=== PATIENT | female | born 1960 | race Caucasian/White ===

== ENCOUNTER 2018-07-16 14:45 | Emergency (ER) | payer BC, SELFPAY ==
--- NOTE | 2018-07-16 14:14 | PC.NURSE ---
unable to obtain IV. 2 attempts in Left hand, unsuccessful. Provider aware. Lab called for lab draw.
[2018-07-16 14:47] VITALS: BP 179/83; PULSE 62; RESP 14; TEMP 36.8; O2SAT 98
--- NOTE | 2018-07-16 15:07 | DI.RAD.S_ITS ---
PROCEDURE: XR ACUTE ABDOMEN SERIES INDICATIONS: lower abd pain, constipation. TECHNIQUE: One view chest and two views of the abdomen were acquired. COMPARISON: None. FINDINGS: Surgical changes and devices: Cervical spine postoperative changes are seen. Chest: Lungs are clear. Heart size is normal. No pleural effusions. No pneumoperitoneum. Abdomen: Mild prominence of right lower quadrant bowel loops can be seen, which measure up to 3 cm. A moderate amount of stool can be seen within the colon. No suspicious calcifications. Visualized solid organ contours appear normal. Bones: No suspicious bony lesions. Age-appropriate bony degenerative changes are seen. IMPRESSION: Mild prominence of gas filled loops of bowel within the right lower quadrant. This is felt most likely to be related to ileus, although differential diagnosis includes small bowel obstruction. There is a moderate amount of stool seen within the colon, which is consistent with the given history of constipation. If it would be helpful for clinical management decision making, please consider a dedicated CT of the abdomen pelvis with IV and oral contrast. Dictated by: Melecio Ta M.D. on 07/16/2018 at 16:13 Approved by: Melecio Ta M.D. on 07/16/2018 at 16:15
[2018-07-16 15:55] LABS: Add Manual Diff / Slide Review NO; Basophils Percent Auto 0.5 % (0-2); Hematocrit 39.7 % (36-46); Hemoglobin 13.5 g/dL (12.0-16.0); Lymphocytes Percent Auto 31.5 % (25-40); Mean Corpuscular HGB Conc 33.9 % (30-36); Mean Corpuscular Volume 91.5 fL (80-100); Monocytes Percent Auto 7.3 % (3-14); Neutrophils Absolute Auto 6600 /uL (3000-5900); Neutrophils Percent Auto 58.7 % (50-75); Platelet Count 291 X10^3/uL (150-400); Red Blood Cell Count 4.35 X10^6/uL (4.0-5.2); Red Cell Distribution Width 13.1 % (11.6-14.8); White Blood Cell Count 11.2 X10^3/uL (4.5-11.0)
[2018-07-16 16:01] LABS: INR 1.1 (0.9-1.3)
[2018-07-16 16:03] LABS: PTT Partial Thromboplastin Tim 32 SECONDS (26.4-36.2)
[2018-07-16 16:07] LABS: Alanine Aminotransferase 27 IU/L (9-52); Albumin 4.6 g/dL (3.5-5.0); Albumin Globulin Ratio 1.4 (1.0-2.8); Alkaline Phosphatase 63 U/L (38-126); Aspartate Aminotransferase 35 IU/L (14-36); BUN Creatinine Ratio 21.4 (6-22); Bilirubin Total 0.6 mg/dL (0.2-1.3); Blood Urea Nitrogen 15 mg/dL (7-17); Calcium 9.8 mg/dL (8.4-10.2); Carbon Dioxide 27 mmol/L (22-32); Chloride 105 mmol/L (98-107); Estimated Glomerular Filt Rate > 60.0 mL/min (>60); Globulin 3.4 g/dL (1.7-4.1); Glucose 98 mg/dL (70-100); HEMOLYSIS < 15 (0-50); Lipase 118 U/L (23-300); Potassium 4.4 mmol/L (3.4-5.1); Sodium 146 mmol/L (137-145)
[2018-07-16 16:26] LABS: Bacteria Urine Moderate (10-30); Culture Indicated Urine Specimen Cultured; RBC Urine 0-1/HPF (0-5/HPF); Squamous Epithelial Cell Urine 1-5 /HPF; WBC Urine 5-10/HPF (0-5/HPF)
--- NOTE | 2018-07-16 16:32 | ED_ITS ---
HPI - Abdominal Pain General Chief Complaint: Abdominal Pain Stated Complaint: Lower Abd pain Time Seen by Provider: 07/16/18 16:18 Source: patient History of Present Illness HPI narrative: This is a 58-year-old female that comes in with complaint of abdominal pain. Patient states that she has had several days of increasing abdominal pain. She has not had a bowel movement about 3 days. She has been passing gas regularly. She has not been having any vomiting. She has had fevers up to 101.2 at home. She states that some it does hurt when she urinates but hurts in her upper abdomen not with urination. She is not having frequency. She has had a prior history with removal of her ovaries but has the rest of her organs. She followed up with her physician today who recommended she come here for evaluation. She did try oral stool softeners as well as glycerin suppository without any improvement. MD complaint: abdominal pain Related Data Home Medications Medication Instructions Recorded Confirmed aspirin 81 mg PO DAILY 07/16/18 07/16/18 gemfibrozil 600 mg PO BID 07/16/18 07/16/18 levothyroxine 1 tab PO DAILY 07/16/18 07/16/18 lisinopril 20 mg PO DAILY 07/16/18 07/16/18 metformin 500 mg PO DAILY 07/16/18 07/16/18 pravastatin 40 mg PO DAILY 07/16/18 07/16/18 venlafaxine 1 tab PO DAILY 07/16/18 07/16/18 Previous Rx's Medication Instructions Recorded ciprofloxacin HCl 500 mg PO BID 10 Days #20 tab 07/16/18 hydrocodone-acetaminophen [[place]] 1 tab PO Q6H PRN #10 tab 07/16/18 metronidazole [Flagyl] 500 mg PO TID 10 Days #30 tab 07/16/18 Allergies Allergy/AdvReac Type Severity Reaction Status Date / Time codeine AdvReac Intermediate Nausea Verified 07/16/18 14:49 Review of Systems Review of Systems All systems reviewed & are unremarkable except as noted in HPI and below Constitutional Reports fever(s) Cardiovascular Denies chest pain, Denies irregular heart rhythm, Denies lightheadedness, Denies palpitations, Denies dyspnea, Denies dyspnea on exertion and Denies orthopnea Respiratory Denies cough, Denies dyspnea, Denies dyspnea on exertion and Denies wheezing Gastrointestinal Gastrointestinal: Reports abdominal pain, Denies change in bowel habits, Denies diarrhea, Denies nausea and Denies vomiting Genitourinary Denies flank pain and Denies urinary urgency Endocrine Denies palpitations Allergic/Immunologic Denies wheezing [facility] Medical History Hypertension (Acute) Social History Smoking Status: Never smoker Exam Initial Vital Signs Initial Vital Signs: Vital Signs Temperature 98.2 F 07/16/18 14:47 Pulse Rate 62 07/16/18 14:47 Respiratory Rate 14 07/16/18 14:47 Blood Pressure 179/83 H 07/16/18 14:47 Pulse Oximetry 98 07/16/18 14:47 Resp Effort & Inspection: normal respiratory effort, able to speak in complete sentences, no respiratory distress and no use of accessory muscles Auscultation: clear to auscultation bilaterally, no rales, no rhonchi and no wheezes Cardio Rate: regular rate Rhythm: regular rhythm Heart Sounds: no click, no gallops, no murmurs and no rubs Pulses: normal peripheral pulses GI Inspection: non-distended Palpation: soft, no hepatosplenomegaly, No guarding, No hernia, No mass, No pulsatile mass and tender (Patient is quite tender in the right and left lower quadrant. Less so suprapubically.) Auscultation: normal bowel sounds General: No CVA tenderness Course Orders Ordered: Discontinued Medications Ciprofloxacin (Cipro) 500 mg PO NOW ONE Stop: 07/16/18 18:58 Last Admin: 07/16/18 19:47 Dose: 500 mg Sodium Chloride (Normal Saline 0.9%) 1,000 mls @ 1,000 mls/hr IV BOLUS ONE Stop: 07/16/18 18:06 Last Infusion: 07/16/18 19:46 Dose: 0 mls/hr Admin: 07/16/18 18:24 Dose: 1,000 mls/hr Metronidazole (Metronidazole) 500 mg PO NOW ONE Stop: 07/16/18 18:58 Last Admin: 07/16/18 19:47 Dose: 500 mg Morphine Sulfate (Morphine) 4 mg IV NOW ONE Stop: 07/16/18 18:57 Last Admin: 07/16/18 19:49 Dose: 4 mg Reevaluation(s) Reevaluation #1: Return did discuss with patient her imaging as well as plan. Patient is pain had returned. She had not had any pain when I initially evaluated her so we plan to repeat dose of pain medication, discussed plan for oral antibiotics as well as oral pain medications and need for follow-up. Patient felt comfortable with this plan. We will wait for her to finish her IV fluids. Time: 16:45 Vital Signs - 8 hr 07/16/18 14:47 Temperature 98.2 F Pulse Rate 62 Respiratory Rate 14 Blood Pressure 179/83 H Pulse Oximetry 98 MDM - Abdominal Pain Lab Data Attestation: I reviewed the patient's lab results. Result diagrams: 07/16/18 15:44 07/16/18 15:44 Lab Results 07/16/18 07/16/18 07/16/18 Range/Units 15:44 15:44 15:44 WBC 11.2 H (4.5-11.0) X10^3/uL RBC 4.35 (4.0-5.2) X10^6/uL Hgb 13.5 (12.0-16.0) g/dL Hct 39.7 (36-46) % MCV 91.5 (80-100) fL MCH 31.0 (26-34) PG MCHC 33.9 (30-36) % RDW 13.1 (11.6-14.8) % Plt Count 291 (150-400) X10^3/uL Neut % (Auto) 58.7 (50-75) % Lymph % (Auto) 31.5 (25-40) % [place] % (Auto) 7.3 (3-14) % Eos % (Auto) 2.0 (2-4) % Baso % (Auto) 0.5 (0-2) % Neut # (Auto) 6600 H (6096-4952) /uL PT 12.0 (10.1-12.7) SECONDS INR 1.1 (0.9-1.3) APTT 32 (26.4-36.2) SECONDS Sodium 146 H (137-145) mmol/L Potassium 4.4 (3.4-5.1) mmol/L Chloride 105 (98-107) mmol/L Carbon Dioxide 27 (22-32) mmol/L BUN 15 (7-17) mg/dL Creatinine 0.70 (0.52-1.04) mg/dL Estimated GFR > 60.0 (>60) mL/min BUN/Creatinine Ratio 21.4 (6-22) Glucose 98 (70-100) mg/dL Calcium 9.8 (8.4-10.2) mg/dL Total Bilirubin 0.6 (0.2-1.3) mg/dL AST 35 (14-36) IU/L ALT 27 (9-52) IU/L Alkaline Phosphatase 63 (38-126) U/L Total Protein 8.0 (6.3-8.2) g/dL Albumin 4.6 (3.5-5.0) g/dL Globulin 3.4 (1.7-4.1) g/dL Albumin/Globulin Ratio 1.4 (1.0-2.8) Lipase 118 (23-300) U/L Urine RBC (0-5/HPF) Urine WBC (0-5/HPF) Ur Squamous Epith Cells Urine Bacteria (None) Ur Culture Indicated? Micro UA Comment 07/16/18 Range/Units Unknown WBC (4.5-11.0) X10^3/uL RBC (4.0-5.2) X10^6/uL Hgb (12.0-16.0) g/dL Hct (36-46) % MCV (80-100) fL MCH (26-34) PG MCHC (30-36) % RDW (11.6-14.8) % Plt Count (150-400) X10^3/uL Neut % (Auto) (50-75) % Lymph % (Auto) (25-40) % [place] % (Auto) (3-14) % Eos % (Auto) (2-4) % Baso % (Auto) (0-2) % Neut # (Auto) (9613-8669) /uL PT (10.1-12.7) SECONDS INR (0.9-1.3) APTT (26.4-36.2) SECONDS Sodium (137-145) mmol/L Potassium (3.4-5.1) mmol/L Chloride (98-107) mmol/L Carbon Dioxide (22-32) mmol/L BUN (7-17) mg/dL Creatinine (0.52-1.04) mg/dL Estimated GFR (>60) mL/min BUN/Creatinine Ratio (6-22) Glucose (70-100) mg/dL Calcium (8.4-10.2) mg/dL Total Bilirubin (0.2-1.3) mg/dL AST (14-36) IU/L ALT (9-52) IU/L Alkaline Phosphatase (38-126) U/L Total Protein (6.3-8.2) g/dL Albumin (3.5-5.0) g/dL Globulin (1.7-4.1) g/dL Albumin/Globulin Ratio (1.0-2.8) Lipase (23-300) U/L Urine RBC 0-1/hpf (0-5/HPF) Urine WBC 5-10/hpf H (0-5/HPF) Ur Squamous Epith Cells 1-5 /hpf Urine Bacteria Moderate (10-30) H (None) Ur Culture Indicated? Specimen cultured Micro UA Comment Not Reportable Point of care testing: Urine Dip Bedside Urine Glucose Negative Bedside Urine Bilirubin - Negative Bedside Urine Ketone - Negative Urine Specific [place] 1.030 Bedside Urine Occult Blood - Negative Bedside Urine pH 6.0 Bedside Urine Protein +/- 15 Bedside Urine Urobilinogen - Negative Bedside Urine Nitrite - Negative Bedside Urine Leukocytes +/- 15 Esterase Imaging Data acute abd series: Radiologist's impression: [place] [address] XRay Report Signed Patient: Agnes Faustin MR#: [id number] : 1960 Acct:[id number] Age/Sex: 58 / F Date of Service: 07/16/18 Loc: ED Accession Number: [id number] Procedure: XR acute abdomen series Ordering Provider: Malika Oliver D.O. PROCEDURE: XR ACUTE ABDOMEN SERIES INDICATIONS: lower abd pain, constipation. TECHNIQUE: One view chest and two views of the abdomen were acquired. COMPARISON: None. FINDINGS: Surgical changes and devices: Cervical spine postoperative changes are seen. Chest: Lungs are clear. Heart size is normal. No pleural effusions. No pneumoperitoneum. Abdomen: Mild prominence of right lower quadrant bowel loops can be seen, which measure up to 3 cm. A moderate amount of stool can be seen within the colon. No suspicious calcifications. Visualized solid organ contours appear normal. Bones: No suspicious bony lesions. Age-appropriate bony degenerative changes are seen. IMPRESSION: Mild prominence of gas filled loops of bowel within the right lower quadrant. This is felt most likely to be related to ileus, although differential diagnosis includes small bowel obstruction. There is a moderate amount of stool seen within the colon, which is consistent with the given history of constipation. If it would be helpful for clinical management decision making, please consider a dedicated CT of the abdomen pelvis with IV and oral contrast. Dictated by: Melecio Ta M.D. on 07/16/2018 at 16:13 Approved by: Melecio Ta M.D. on 07/16/2018 at 16:15 CT scan - abdomen: Radiologist's impression: CT Scan Report Signed Patient: Agnes Faustin MR#: [id number] : 1960 Acct:[id number] Age/Sex: 58 / F Date of Service: 07/16/18 Loc: ED Accession Number: [id number] Procedure: CT abdomen pelvis w con Ordering Provider: Malika Oliver D.O. PROCEDURE: CT ABDOMEN PELVIS W CON INDICATIONS: RLQ and LLQ, no BM x 3 days, positive flatus TECHNIQUE: After the administration of intravenous contrast, 5 mm thick sections acquired from the diaphragm to the symphysis. 5 mm coronal and sagittal reformats were acquired. For radiation dose reduction, the following was used: automated exposure control, adjustment of mA and/or kV according to patient size. COMPARISON: None. FINDINGS: Image quality: Excellent. ABDOMEN: Lung bases: Mild dependent atelectasis in posterior aspect of bilateral lung bases are seen. Heart size is normal. Solid organs: Liver is normal in size and enhancement. Mild hepatic steatosis is seen. Gallbladder is within normal limits. Biliary system is non dilated. Pancreas enhances normally. Spleen is normal in size and enhancement. No adrenal nodules. Kidneys demonstrate normal size and enhancement, without hydronephrosis. Peritoneum and bowel: There is a moderate to large size hiatal hernia. No evidence of bowel obstruction. Mild fecal stasis in the colon is seen. No gross abnormal stomach or small bowel wall thickening is seen. There is diffuse sigmoid colon wall thickening with pericolonic fat stranding. A few sigmoid diverticuli are seen. No free fluid or free air. Nodes and vessels: No retroperitoneal or mesenteric adenopathy by size criteria. Aorta and inferior vena cava are normal in size. Miscellaneous: No ventral hernias. PELVIS: Genitourinary: Bladder wall thickness is normal. Miscellaneous: No inguinal hernias or adenopathy. Bones: No suspicious bony lesions. No vertebral body compression fractures. IMPRESSION: 1. Diffuse sigmoid colon wall thickening with narrowing of the lumen and pericolonic fat stranding suggestive of sigmoid colitis. 2. No evidence of bowel obstruction. No other area of abnormal bowel wall thickening. No free fluid or free air. A moderate to large size hiatal hernia. 3. No obstructing renal stone or hydronephrosis. Mild hepatic steatosis. Dictated by: Delfin Haji M.D. on 07/16/2018 at 18:15 Approved by: Delfin Haji M.D. on 07/16/2018 at 18:18 [facility] Narrative Medical decision making narrative: Patient has normal lab work, abdomen is tender on exam particularly right and left lower quadrant so CT imaging was ordered. Patient has a history of IV drug abuse so imaging was delayed while PICC line nurse was able to obtain IV access for imaging. Patient's urine shows leukocyte esterase but no other clear signs of infection. CT shows sigmoid colitis. Patient's plan for oral antibiotics. Medication for pain control and need for follow-up. Discharge Plan Departure Patient Disposition: Home Clinical Impression: Abdominal pain, Colitis Discharge Date/Time: 07/16/18 21:23 Interventions: ED Discharge Assessment Last Done: 07/16/18 21:22 Instructions: DI for Colitis Activity Restrictions/Additional Instructions: Follow-up with her primary care physician in the next 2-3 days for recheck. Call tomorrow for an appointment. Take antibiotics as prescribed. Do not drink alcohol while taking Flagyl as it will make you sick and vomit. Take pain medications as prescribed, these medications can make you sleepy do not drive, perform hazards activities or make any major decisions while taking them. Prescriptions: New hydrocodone-acetaminophen [[place]] 5-325 mg tablet 1 tab PO Q6H PRN (Reason: pain) Qty: 10 RF: 0 metronidazole [Flagyl] 500 mg tablet 500 mg PO TID 10 Days Qty: 30 RF: 0 ciprofloxacin HCl 500 mg tablet 500 mg PO BID 10 Days Qty: 20 RF: 0 No Action metformin 500 mg tablet 500 mg PO DAILY RF: 0 pravastatin 40 mg tablet 40 mg PO DAILY RF: 0 lisinopril 20 mg tablet 20 mg PO DAILY RF: 0 gemfibrozil 600 mg tablet 600 mg PO BID RF: 0 levothyroxine 50 mcg tablet 1 tab PO DAILY RF: 0 venlafaxine 150 mg tablet extended release 24hr 1 tab PO DAILY RF: 0 aspirin 81 mg Tablet,Delayed Release (Dr/Ec) 81 mg PO DAILY RF: 0
--- NOTE | 2018-07-16 17:05 | DI.CT.S_ITS ---
PROCEDURE: CT ABDOMEN PELVIS W CON INDICATIONS: RLQ and LLQ, no BM x 3 days, positive flatus TECHNIQUE: After the administration of intravenous contrast, 5 mm thick sections acquired from the diaphragm to the symphysis. 5 mm coronal and sagittal reformats were acquired. For radiation dose reduction, the following was used: automated exposure control, adjustment of mA and/or kV according to patient size. COMPARISON: None. FINDINGS: Image quality: Excellent. ABDOMEN: Lung bases: Mild dependent atelectasis in posterior aspect of bilateral lung bases are seen. Heart size is normal. Solid organs: Liver is normal in size and enhancement. Mild hepatic steatosis is seen. Gallbladder is within normal limits. Biliary system is non dilated. Pancreas enhances normally. Spleen is normal in size and enhancement. No adrenal nodules. Kidneys demonstrate normal size and enhancement, without hydronephrosis. Peritoneum and bowel: There is a moderate to large size hiatal hernia. No evidence of bowel obstruction. Mild fecal stasis in the colon is seen. No gross abnormal stomach or small bowel wall thickening is seen. There is diffuse sigmoid colon wall thickening with pericolonic fat stranding. A few sigmoid diverticuli are seen. No free fluid or free air. Nodes and vessels: No retroperitoneal or mesenteric adenopathy by size criteria. Aorta and inferior vena cava are normal in size. Miscellaneous: No ventral hernias. PELVIS: Genitourinary: Bladder wall thickness is normal. Miscellaneous: No inguinal hernias or adenopathy. Bones: No suspicious bony lesions. No vertebral body compression fractures. IMPRESSION: 1. Diffuse sigmoid colon wall thickening with narrowing of the lumen and pericolonic fat stranding suggestive of sigmoid colitis. 2. No evidence of bowel obstruction. No other area of abnormal bowel wall thickening. No free fluid or free air. A moderate to large size hiatal hernia. 3. No obstructing renal stone or hydronephrosis. Mild hepatic steatosis. Dictated by: Delfin Haji M.D. on 07/16/2018 at 18:15 Approved by: Delfin Haji M.D. on 07/16/2018 at 18:18
--- NOTE | 2018-07-16 17:30 | PC.NURSE ---
Yudelka LENTZ RN called to place IV in pt.
[2018-07-16] MEDS: SODIUM CHLORIDE 0.9% 1,000 ML 1000 ML IV (18:24)
[2018-07-16] MEDS: CIPROFLOXACIN 500 MG TABLET PO (19:47)
[2018-07-16] MEDS: metroNIDAZOLE 500 MG TABLET PO (19:47)
[2018-07-16] MEDS: MORPHINE 4 MG/ML INJ IV (19:49)
[2018-07-16 19:52] VITALS: BP 144/63; PULSE 58; RESP 20; TEMP 36.6; O2SAT 95
[2018-07-16 20:30] VITALS: BP 142/70; PULSE 58; RESP 18; O2SAT 95
[2018-07-16 21:22] VITALS: BP 146/65; PULSE 68; RESP 20; TEMP 36.4; O2SAT 94
== END 2018-07-16 21:23 | disposition home or self-care (01) ==
PROVIDERS: Emergency Provider Emergency Medicine; PCP Family Medicine
DX: K52.9 Noninfective gastroenteritis and colitis, unspecified (principal); R10.9 Unspecified abdominal pain
CPT/HCPCS: 74022; 74177; 80053; 81003; 81015; 83690; 85025; 85610; 85730; 87086; 96361; 96374; 99283; 99285; J2270; Q9967

== ENCOUNTER 2018-10-03 23:28 | Emergency (ER) | payer BC, SELFPAY ==
--- NOTE | 2018-10-03 23:30 | ED.ABDPAIN ---
HPI - Abdominal Pain General Chief Complaint: Abdominal Pain Stated Complaint: LOWER RIGHT ABDOMINAL PAIN RADIATING TO KIDNEYS Time Seen by Provider: 10/03/18 23:30 Source: patient Mode of arrival: ambulatory Limitations: no limitations History of Present Illness HPI narrative: Patient is a 58-year-old female here for evaluation of right-sided abdominal pain that she states is radiating to her right kidney. She states that yesterday she started to feel like she was having a urinary tract infection. Had burning and frequency. She states that now she is continuing to have those symptoms but is also having right lower quadrant abdominal pain and also right back pain. She also noticed some blood in her urine. She states that she has had a history of diverticulitis. States she has never had a kidney stone for has never have abdominal surgery in the past. No vaginal bleeding. No change in bowel habits. Related Data Home Medications Medication Instructions Recorded Confirmed aspirin 81 mg PO DAILY 07/16/18 07/16/18 gemfibrozil 600 mg PO BID 07/16/18 07/16/18 levothyroxine 1 tab PO DAILY 07/16/18 07/16/18 lisinopril 20 mg PO DAILY 07/16/18 07/16/18 metformin 500 mg PO DAILY 07/16/18 07/16/18 pravastatin 40 mg PO DAILY 07/16/18 07/16/18 venlafaxine 1 tab PO DAILY 07/16/18 07/16/18 Previous Rx's Medication Instructions Recorded hydrocodone-acetaminophen [[place]] 1 tab PO Q6H PRN #10 tab 07/16/18 sulfamethoxazole-trimethoprim 1 tab PO BID 7 Days #14 tab 10/04/18 Allergies Allergy/AdvReac Type Severity Reaction Status Date / Time codeine AdvReac Intermediate Nausea Verified 07/16/18 14:49 Review of Systems Constitutional Denies fever(s) Cardiovascular Denies chest pain and Denies dyspnea Respiratory Denies dyspnea Gastrointestinal Gastrointestinal: Reports abdominal pain, Denies change in bowel habits, Denies nausea and Denies vomiting Genitourinary Reports dysuria, Reports urinary urgency and Denies vaginal discharge Musculoskeletal Denies myalgias and Denies arthralgias Integumentary/Breasts Denies rash PFSH Medical History Diabetes (Acute) Hypothyroid (Acute) Hypertension (Acute) Surgical History No pertinent past surgical history (Acute) Social History Smoking Status: Never smoker Exam Initial Vital Signs Initial Vital Signs: Vital Signs Temperature 98.1 F 10/03/18 23:38 Pulse Rate 66 10/03/18 23:38 Respiratory Rate 18 10/03/18 23:38 Blood Pressure 170/67 H 10/03/18 23:38 Pulse Oximetry 96 10/03/18 23:38 Const General: cooperative and healthy appearing Resp Effort & Inspection: normal respiratory effort Auscultation: clear to auscultation bilaterally Cardio Rate: regular rate Rhythm: regular rhythm GI Inspection: non-distended Palpation: soft, No firm, No guarding and tender (Right lower quadrant) Back/Spine/Pelvis Back: CVA tenderness right Skin Lesions: no lesions Rashes: no rashes Neuro General: alert, awake and oriented x3 Extrem General: normal to inspection and capillary refill normal Psych Appearance: grossly normal and well kempt Course Orders Ordered: ED Orders 10/03/18 23:40 Complete Blood Count AUTO DIFF Stat Comprehensive Metabolic Panel Stat Lipase Stat 10/03/18 23:50 UA Complete [Urinalysis and Microscopic] Stat 10/03/18 23:54 CT abdomen pelvis w con Stat Discontinued Medications Sodium Chloride (Normal Saline 0.9%) 1,000 mls @ 1,000 mls/hr IV BOLUS ONE Stop: 10/04/18 00:52 Last Admin: 10/04/18 01:05 Dose: 1,000 mls/hr Trimethoprim/Sulfamethoxazole (Bactrim Ds) 1 tab PO NOW ONE Stop: 10/04/18 01:11 Last Admin: 10/04/18 01:22 Dose: 1 tab Vital Signs - 8 hr 10/03/18 23:38 10/04/18 01:00 Temperature 98.1 F Pulse Rate 66 58 L Respiratory Rate 18 16 Blood Pressure [Left Arm] 170/67 H 130/62 Pulse Oximetry 96 94 MDM - Abdominal Pain Lab Data Attestation: I reviewed the patient's lab results. Result diagrams: 10/03/18 23:40 10/03/18 23:40 Lab Results 10/03/18 10/03/18 10/03/18 Range/Units 23:40 23:40 23:50 WBC 13.8 H (4.5-11.0) X10^3/uL RBC 4.22 (4.0-5.2) X10^6/uL Hgb 12.7 (12.0-16.0) g/dL Hct 38.1 (36-46) % MCV 90.1 (80-100) fL MCH 30.0 (26-34) PG MCHC 33.3 (30-36) % RDW 12.8 (11.6-14.8) % Plt Count 337 (150-400) X10^3/uL Neut % (Auto) 77.4 H (50-75) % Lymph % (Auto) 15.2 L (25-40) % [place] % (Auto) 6.3 (3-14) % Eos % (Auto) 0.7 L (2-4) % Baso % (Auto) 0.4 (0-2) % Neut # (Auto) 18669 H (8962-0078) /uL Sodium 142 (137-145) mmol/L Potassium 4.6 (3.4-5.1) mmol/L Chloride 105 (98-107) mmol/L Carbon Dioxide 21 L (22-32) mmol/L BUN 21 H (7-17) mg/dL Creatinine 0.70 (0.52-1.04) mg/dL Estimated GFR > 60.0 (>60) mL/min BUN/Creatinine Ratio 30.0 H (6-22) Glucose 163 H (70-100) mg/dL Calcium 9.5 (8.4-10.2) mg/dL Total Bilirubin 0.6 (0.2-1.3) mg/dL AST 50 H (14-36) IU/L ALT 40 (9-52) IU/L Alkaline Phosphatase 77 (38-126) U/L Total Protein 8.2 (6.3-8.2) g/dL Albumin 4.7 (3.5-5.0) g/dL Globulin 3.5 (1.7-4.1) g/dL Albumin/Globulin Ratio 1.3 (1.0-2.8) Lipase 206 (23-300) U/L Urine Color Brown Urine Appearance Turbid Urine pH 5.0 (4.5-8.0) Ur Specific [place] 1.025 (1.000-1.035) Urine Protein 3+ H (Negative) Urine Glucose (UA) Negative (Normal) g/dL Urine Ketones Negative (NEGATIVE) Urine Occult Blood 3+ H (Negative) Urine Nitrate Positive H (Negative) Urine Bilirubin Negative (NEGATIVE) Urine Urobilinogen 0.2 (0.2) E.U./dL Ur Leukocyte Esterase 2+ H (NEGATIVE) Urine RBC >100/hpf H (0-5/HPF) Urine WBC >100/hpf H (0-5/HPF) Urine Bacteria Many (>30) H (None) Ur Culture Indicated? Specimen cultured Micro UA Comment Not Reportable Imaging Data CT scan - abdomen: Radiologist's impression: No findings of colitis or diverticulitis. Normal appendix. Thickened an trabecular did urinary bladder wall with slight surrounding fat stranding, suspicious for cystitis. Slight thickening of the right ureteral wall with minimal christie ureteral and christie renal stranding on the right, most likely due to you're itis given the bladder abnormalities. Recent passage of a right ureteral stone would be less likely. No renal or obstructing ureteral stones identified at this time MDM Narrative Medical decision making narrative: Nitrite positive urine, dysuria, elevated white blood cell count, and CT scan showing thickening of the bladder wall consistent with a urinary tract infection. She also has right-sided flank pain with what appears to be an inflamed ureter and the CT scan on the right. This is consistent with pyelonephritis. Patient is nontoxic appearing. Tolerating oral intake. No other surgical abnormalities found on the CT scan. Patient was given 1st dose of Bactrim here in the emergency department. Will send home with prescription. She was given return precautions. She expressed understanding and agreement with plan. Discharge Plan Departure Patient Disposition: Home Clinical Impression: Pyelonephritis Instructions: DI for Kidney Infection Activity Restrictions/Additional Instructions: Start taking the antibiotic and as directed. Your 1st dose will be on Saturday morning. Return to the emergency department for any new symptoms, worsening pain, inability to tolerate her antibiotic, or any other concerning symptoms Prescriptions: New sulfamethoxazole-trimethoprim 800-160 mg tablet 1 tab PO BID 7 Days Qty: 14 RF: 0 No Action metformin 500 mg tablet 500 mg PO DAILY RF: 0 pravastatin 40 mg tablet 40 mg PO DAILY RF: 0 lisinopril 20 mg tablet 20 mg PO DAILY RF: 0 gemfibrozil 600 mg tablet 600 mg PO BID RF: 0 levothyroxine 50 mcg tablet 1 tab PO DAILY RF: 0 venlafaxine 150 mg tablet extended release 24hr 1 tab PO DAILY RF: 0 aspirin 81 mg Tablet,Delayed Release (Dr/Ec) 81 mg PO DAILY RF: 0 hydrocodone-acetaminophen [[place]] 5-325 mg tablet 1 tab PO Q6H PRN (Reason: pain) Qty: 10 RF: 0
[2018-10-03 23:34] VITALS: BMI 31.3
[2018-10-03 23:38] VITALS: BP 170/67; PULSE 66; RESP 18; TEMP 36.7; O2SAT 96
--- NOTE | 2018-10-03 23:54 | DI.CT.S_ITS ---
PROCEDURE: CT ABDOMEN PELVIS W CON INDICATIONS: Right-sided abdominal pain TECHNIQUE: After the administration of intravenous contrast, 5 mm thick sections acquired from the diaphragm to the symphysis. 5 mm coronal and sagittal reformats were acquired. For radiation dose reduction, the following was used: automated exposure control, adjustment of mA and/or kV according to patient size. COMPARISON: [facility], CT, CT ABDOMEN PELVIS W CON, 07/16/2018, 17:52. FINDINGS: Image quality: Excellent. ABDOMEN: Lung bases: Mild bibasilar dependent atelectasis is seen. No pleural effusion or pneumothorax. Heart size is normal. Solid organs: Liver is normal in size and enhancement. There is hepatic steatosis, no discrete hepatic lesion. Gallbladder is within normal limits. Biliary system is non dilated. Pancreas enhances normally. Spleen is normal in size and enhancement. No adrenal nodules. Kidneys demonstrate normal size and enhancement, without hydronephrosis. Peritoneum and bowel: Bowel loops demonstrate normal wall thickness and caliber. No free fluid or air. Appendix is visualized and is within normal limits. Moderate-sized hiatal hernia is seen. Sigmoid colon diverticulosis is noted, no CT evidence of acute diverticulitis. Nodes and vessels: No retroperitoneal or mesenteric adenopathy by size criteria. Aorta and inferior vena cava are normal in size. Miscellaneous: No ventral hernias. PELVIS: Genitourinary: Diffuse bladder wall thickening is noted, and no discrete bladder wall mass. Miscellaneous: No inguinal hernias or adenopathy. Bones: No suspicious bony lesions. No vertebral body compression fractures. IMPRESSION: 1. Normal appendix. No bowel obstruction. Sigmoid diverticulosis with no evidence of acute diverticulitis. Moderate-sized hiatal hernia. No free fluid or free air. 2. No renal stone hydronephrosis. Questionable diffuse bladder wall thickening which may be due to underdistention. Cystitis cannot be entirely excluded. 3. Hepatic steatosis. Dictated by: Delfin Haji M.D. on 10/04/2018 at 8:47 Approved by: Delfin Haji M.D. on 10/04/2018 at 8:49
[2018-10-04 00:03] LABS: Add Manual Diff / Slide Review NO; Basophils Percent Auto 0.4 % (0-2); Eosinophils Percent Auto 0.7 % (2-4); Hematocrit 38.1 % (36-46); Hemoglobin 12.7 g/dL (12.0-16.0); Lymphocytes Percent Auto 15.2 % (25-40); Mean Corpuscular HGB Conc 33.3 % (30-36); Mean Corpuscular Volume 90.1 fL (80-100); Monocytes Percent Auto 6.3 % (3-14); Neutrophils Absolute Auto 10700 /uL (3000-5900); Neutrophils Percent Auto 77.4 % (50-75); Platelet Count 337 X10^3/uL (150-400); Red Blood Cell Count 4.22 X10^6/uL (4.0-5.2); Red Cell Distribution Width 12.8 % (11.6-14.8); White Blood Cell Count 13.8 X10^3/uL (4.5-11.0)
[2018-10-04 00:12] LABS: Alanine Aminotransferase 40 IU/L (9-52); Albumin 4.7 g/dL (3.5-5.0); Albumin Globulin Ratio 1.3 (1.0-2.8); Alkaline Phosphatase 77 U/L (38-126); Aspartate Aminotransferase 50 IU/L (14-36); Bilirubin Total 0.6 mg/dL (0.2-1.3); Blood Urea Nitrogen 21 mg/dL (7-17); Calcium 9.5 mg/dL (8.4-10.2); Carbon Dioxide 21 mmol/L (22-32); Chloride 105 mmol/L (98-107); Estimated Glomerular Filt Rate > 60.0 mL/min (>60); Globulin 3.5 g/dL (1.7-4.1); Glucose 163 mg/dL (70-100); HEMOLYSIS 26 (0-50); Lipase 206 U/L (23-300); Potassium 4.6 mmol/L (3.4-5.1); Sodium 142 mmol/L (137-145); Total Protein 8.2 g/dL (6.3-8.2)
[2018-10-04 00:42] LABS: Bilirubin Urine UA NEGATIVE (NEGATIVE); Glucose Urine UA NEGATIVE (Normal); Ketones Urine UA NEGATIVE (NEGATIVE); Leukocyte Esterase Urine UA 2+ (NEGATIVE); Nitrite Urine UA POSITIVE (Negative); Occult Blood Urine UA 3+ (Negative); Protein Urine UA 3+ (Negative); Specific Gravity Urine UA 1.025 (1.000-1.035); Urobilinogen Urine UA 0.2 E.U./dL (0.2)
[2018-10-04 00:44] LABS: Appearance Urine UA TURBID; Color Urine UA BROWN
[2018-10-04 00:50] LABS: RBC Urine >100/HPF (0-5/HPF); WBC Urine >100/HPF (0-5/HPF)
[2018-10-04 00:51] LABS: Bacteria Urine Many (>30); Culture Indicated Urine Specimen Cultured
[2018-10-04 01:00] VITALS: BP 130/62; PULSE 58; RESP 16; O2SAT 94
[2018-10-04] MEDS: SODIUM CHLORIDE 0.9% 1,000 ML 1000 ML IV (01:05)
[2018-10-04] MEDS: TRIMETH/SULFA 160/800 (DS) TABLET 1 TAB PO (01:22)
== END 2018-10-04 01:38 | disposition home or self-care (01) ==
PROVIDERS: Emergency Provider Emergency Medicine; PCP Family Medicine
DX: N12 Tubulo-interstitial nephritis, not specified as acute or chronic (principal)
CPT/HCPCS: 36591; 74177; 80053; 81001; 83690; 85025; 87077; 87086; 87186; 99283; 99285; Q9967

== ENCOUNTER 2021-04-21 16:08 | Inpatient (IN) | payer OTHER, SELFPAY ==
[2021-04-21] VITALS (10 sets, daily range): BP systolic 124–140; BP diastolic 58–63; PULSE 54–73; RESP 22–32; TEMP 36.9–38; O2SAT 88–95; BMI 30.5; BMI 31.7
--- NOTE | 2021-04-21 16:17 | DI.RAD.S_ITS ---
PROCEDURE: XR CHEST 1V INDICATIONS: shortness of breath TECHNIQUE: One view of the chest was acquired. COMPARISON: [facility], CT, CT ABDOMEN PELVIS W CON, 10/03/2018, 23:50. FINDINGS: Surgical changes and devices: Cervical fixation hardware is noted. Lungs and pleura: Patchy bibasilar opacities are present. There is trace blunting of the left costophrenic angle. Mediastinum: Lucency is noted posterior to the retrocardiac shadow most consistent with hiatal hernia. Heart size is borderline prominent. Bones and chest wall: No suspicious bony lesions. Overlying soft tissues appear unremarkable. IMPRESSION: Patchy bibasilar and retrocardiac opacities most consistent with pneumonia. Trace left effusion. Recommend interval follow-up to document resolution exclude presence of underlying mass lesion of potential malignant etiology. Dictated by: Adriane Perez M.D. on 04/21/2021 at 17:48 Approved by: Adriane Perez M.D. on 04/21/2021 at 17:49
[2021-04-21 16:47] LABS: Add Manual Diff / Slide Review NO; Basophils Absolute Auto 0 /uL (0-100); Basophils Percent Auto 0.2 % (0-2); Eosinophils Absolute Auto 0 /uL (0-450); Eosinophils Percent Auto 0.1 % (2-4); Hematocrit 34.3 % (36-46); Hemoglobin 11.7 g/dL (12.0-16.0); Lymphocytes Absolute Auto 900 /uL (1100-4500); Mean Corpuscular Hemoglobin 29.3 PG (26-34); Monocytes Absolute Auto 200 /uL (0-900); Monocytes Percent Auto 3.6 % (3-14); Neutrophils Absolute Auto 5600 /uL (1500-7000); Neutrophils Percent Auto 83.1 % (50-75); Platelet Count 275 X10^3/uL (150-400); Red Blood Cell Count 3.99 X10^6/uL (4.0-5.2); White Blood Cell Count 6.7 X10^3/uL (4.5-11.0)
[2021-04-21 17:01] LABS: Alanine Aminotransferase 14 IU/L (<35); Albumin 3.9 g/dL (3.5-5.0); Albumin Globulin Ratio 1.1 (1.0-2.8); Alkaline Phosphatase 54 U/L (38-126); Aspartate Aminotransferase 41 IU/L (14-36); BUN Creatinine Ratio 29.2 (6-22); Bilirubin Total 0.6 mg/dL (0.2-1.3); Blood Urea Nitrogen 19 mg/dL (7-17); Calcium 8.8 mg/dL (8.4-10.2); Carbon Dioxide 20 mmol/L (22-32); Chloride 105 mmol/L (98-107); Estimated Glomerular Filt Rate > 60.0 mL/min (>60); Globulin 3.6 g/dL (1.7-4.1); Glucose 118 mg/dL (80-110); Potassium 4.5 mmol/L (3.4-5.1); Sodium 134 mmol/L (137-145); Total Protein 7.5 g/dL (6.3-8.2)
[2021-04-21 17:09] LABS: Lactate (Lactic Acid) 1.2 mmol/L (0.7-2.1); NT-proBNP (BNP-Adult 18+) 123 pg/mL (<125)
[2021-04-21 17:17] LABS: HEMOLYSIS 83 (0-50)
--- NOTE | 2021-04-21 18:23 | ED.SOB ---
HPI - SOB/Dyspnea General Chief Complaint: Shortness of Breath/Dyspnea Stated Complaint: +covid test, fever for 8 days, SOB Time Seen by Provider: 04/21/21 17:58 Source: patient Mode of arrival: Wheelchair Limitations: no limitations History of Present Illness HPI Narrative: 61-year-old female nonsmoker with a history of diabetes, hypertension and hypothyroid presents with a chief complaint of fever, headache, sore throat, dry hacking cough and shortness of breath for the past few days. She has significant sleep apnea and uses CPAP at night. She had a COVID swab which was positive a few days ago. She states that her symptoms have been gradually worsening for the past 8 days. 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 Complaint: shortness of breath Onset (ago): day(s) Severity: moderate Consistency/Duration: constant Relieving factors: nothing Exacerbating factors: exertion Treatment prior to arrival: none Related Data Home Medications Medication Instructions Recorded Confirmed aspirin 81 mg PO DAILY 07/16/18 07/16/18 gemfibrozil 600 mg PO BID 07/16/18 04/21/21 levothyroxine 1 tab PO DAILY 07/16/18 04/21/21 lisinopril 20 mg PO DAILY 07/16/18 04/21/21 metformin 500 mg PO DAILY 07/16/18 04/21/21 pravastatin 40 mg PO DAILY 07/16/18 04/21/21 venlafaxine 1 tab PO DAILY 07/16/18 07/16/18 bupropion HCl mg PO 04/21/21 levothyroxine 75 mcg PO DAILY 04/21/21 04/21/21 venlafaxine 37.5 mg PO DAILY 04/21/21 04/21/21 Previous Rx's Medication Instructions Recorded hydrocodone-acetaminophen [[place]] 1 tab PO Q6H PRN #10 tab 07/16/18 Allergies Allergy/AdvReac Type Severity Reaction Status Date / Time codeine AdvReac Intermediate Nausea Verified 04/21/21 16:12 Review of Systems Constitutional Constitutional: Denies chills, Denies fatigue, Denies fever(s), Denies frequent falls, Reports headache(s), Denies lethargy and Denies weakness Eyes Eyes: Denies change in vision, Denies eye discharge, Denies irritation and Denies loss of vision ENT Ears, Nose, Mouth, and Throat: Denies change in voice, Denies dizziness, Reports headache(s), Denies neck pain, Reports sore throat and Denies throat swelling Cardiovascular Cardiovascular: Denies chest pain, Denies irregular heart rhythm, Denies lightheadedness, Denies palpitations, Reports dyspnea, Denies dyspnea on exertion and Denies orthopnea Respiratory Respiratory: Reports cough, Reports dyspnea, Denies dyspnea on exertion and Reports wheezing Gastrointestinal Gastrointestinal: Denies abdominal pain, Denies change in bowel habits, Denies diarrhea, Denies nausea and Denies vomiting Musculoskeletal Musculoskeletal: Denies neck pain and Denies numbness Integumentary/Breasts Skin/Breast: Denies pruritus, Denies erythema, Denies rash and Denies wounds Neurologic Neurologic: Denies behavioral changes, Denies confusion, Denies dizziness, Denies frequent falls, Reports headache(s), Denies loss of vision, Denies numbness and Denies weakness Psychiatric Psychiatric: Denies anxiety, Denies behavioral changes, Denies confusion, Denies depression, Denies homicidal ideation and Denies suicidal ideation Endocrine Endocrine: Denies fatigue, Denies flushing and Denies palpitations Hematologic/Lymphatic Hematologic/Lymphatic: Denies easy bruising Allergic/Immunologic Allergic/Immunologic: Denies urticaria, Denies throat swelling and Reports wheezing Patient History Medical History Diabetes Hypertension Hypothyroid Surgical History No pertinent past surgical history Family History Father Congestive heart failure Mother Dementia Daughter Chromosomal abnormality Son MVA (motor vehicle accident) Social History household members: family Smoking Status: Never smoker Smoking Status: Never smoker alcohol intake frequency: holidays/special occasions only Substance Use Type: does not use Exam Narrative Exam Narrative: GENERAL: [61 ] year old patient appears stated age. Well-developed patient, in mild distress. HEAD: Atraumatic. Normocephalic. EYES: Pupils equal round and reactive. Extraocular motions intact. No scleral icterus. No injection or drainage. ENT: Nose without bleeding, purulent drainage. Throat without erythema, tonsillar hypertrophy or exudate. Airway patent. NECK: Trachea midline. Non tender CARDIOVASCULAR: Regular rate and rhythm without murmurs, gallops, or rubs. RESPIRATORY: Clear to auscultation. Breath sounds equal bilaterally. No wheezes, rales, or rhonchi. GASTROINTESTINAL: Abdomen soft, non-tender, nondistended. EXTREMITIES: No edema or joint tenderness. BACK: Nontender without deformity or crepitance. No flank tenderness. NEURO: AOx3. SKIN: No rash or erythema of visible areas Initial Vital Signs Initial Vital Signs: Vital Signs Temperature 100.4 F H 04/21/21 16:14 Pulse Rate 73 04/21/21 16:14 Respiratory Rate 28 H 04/21/21 16:14 Blood Pressure 131/63 04/21/21 16:14 Pulse Oximetry 92 04/21/21 16:14 Course Orders Ordered: Acetaminophen (Acetaminophen 325 Mg Tablet) 650 mg PO Q6HR PRN PRN Reason: Fever/Mild Pain (1-3) Hydrocodone Bitart/Acetaminophen (Hydrocodone/Acet 5/325 Tablet) 1 tab PO Q6H PRN PRN Reason: pain Aspirin (Aspirin Ec 81 Mg Tablet) 81 mg PO DAILY [facility] Dexamethasone (Dexamethasone 10 Mg/Ml Vial) 6 mg IV DAILY [facility] Dextrose (Dextrose 50 % In Water 25 Gm/50 Ml Syringe) 25 gm IV PRN PRN PRN Reason: Hypoglycemia Enoxaparin Sodium (Enoxaparin 40 Mg/0.4 Ml Syringe) 40 mg SUBCUT DAILY [facility] Gemfibrozil (Gemfibrozil 600 Mg Tablet) 600 mg PO BID [facility] Remdesivir 100 mg/ Sodium (Chloride) 250 mls @ 250 mls/hr IV Q24H [facility] Insulin Human Lispro (Insulin Lispro 100 Unit/Ml 3ml Vial) 0 unit SUBCUT ACHS [facility]; Protocol Last Admin: 04/22/21 01:17 Dose: 1 unit Documented by: MIRA Cosigned by: CTRJOSE Levothyroxine Sodium (Levothyroxine 75 Mcg Tablet) 75 mcg PO QACBREAK [facility] Lisinopril (Lisinopril 20 Mg Tablet) 20 mg PO DAILY [facility] Naloxone HCl (Naloxone 0.4 Mg/Ml Vial) 0.2 mg IV Q2MIN PRN PRN Reason: Opiate Reversal Ondansetron HCl (Ondansetron 4 Mg/2 Ml Inj) 4 mg IV Q8HR PRN PRN Reason: Nausea And Vomiting Pravastatin Sodium (Pravastatin 20 Mg Tablet) 40 mg PO DAILY [place] Sodium Chloride (Sodium Chloride 0.9% Flush) 10 ml IV PRN PRN PRN Reason: Flush Sodium Chloride (Sodium Chloride 0.9% Flush) 10 ml IV BID [place] Venlafaxine HCl (Venlafaxine Er 37.5 Mg Cap) 75 mg PO DAILY [place] Discontinued Medications Dexamethasone (Dexamethasone 10 Mg/Ml Vial) 6 mg IV NOW ONE Stop: 04/21/21 18:25 Last Admin: 04/21/21 19:08 Dose: 6 mg Documented by: SERJIO Remdesivir 200 mg/ Sodium (Chloride) 250 mls @ 250 mls/hr IV NOW ONE Stop: 04/21/21 18:25 Last Infusion: 04/21/21 20:24 Dose: 250 mls/hr Documented by: Infusion: 04/21/21 19:20 Dose: 0 mls/hr Documented by: Admin: 04/21/21 19:08 Dose: 250 mls/hr Documented by: SERJIO Insulin Human Lispro (Insulin Lispro 100 Unit/Ml 3ml Vial) 0 unit SUBCUT ACHS [place]; Protocol Levothyroxine Sodium (Levothyroxine 50 Mcg Tablet) 50 mcg PO DAILY [facility] Venlafaxine HCl (Venlafaxine Er 75 Mg Cap) 150 mg PO DAILY [facility] Venlafaxine HCl (Venlafaxine Er 37.5 Mg Cap) 37.5 mg PO DAILY [facility] Vital Signs Vital signs: Vital Signs - 8 hr 04/21/21 16:14 04/21/21 18:13 Temperature 100.4 F H Pulse Rate 73 Respiratory Rate 28 H Blood Pressure 131/63 Pulse Oximetry 92 88 L MDM - SOB/Dyspnea Lab Data Result diagrams: 04/22/21 04:46 04/22/21 04:46 Labs: Lab Results 04/21/21 04/21/21 04/21/21 Range/Units 16:40 16:40 16:40 WBC 6.7 (4.5-11.0) X10^3/uL RBC 3.99 L (4.0-5.2) X10^6/uL Hgb 11.7 L (12.0-16.0) g/dL Hct 34.3 L (36-46) % MCV 86.0 (80-100) fL MCH 29.3 (26-34) PG MCHC 34.0 (30-36) % RDW 14.0 (11.6-14.8) % Plt Count 275 (150-400) X10^3/uL Neut % (Auto) 83.1 H (50-75) % Lymph % (Auto) 13.0 L (25-40) % [place] % (Auto) 3.6 (3-14) % Eos % (Auto) 0.1 L (2-4) % Baso % (Auto) 0.2 (0-2) % Neut # (Auto) 5600 (1111-8140) /uL Lymph # (Auto) 900 L (0893-1201) /uL [place] # (Auto) 200 (0-900) /uL Eos # (Auto) 0 (0-450) /uL Baso # (Auto) 0 (0-100) /uL D-Dimer (<230) ng/mL Sodium 134 L (137-145) mmol/L Potassium 4.5 (3.4-5.1) mmol/L Chloride 105 (98-107) mmol/L Carbon Dioxide 20 L (22-32) mmol/L BUN 19 H (7-17) mg/dL Creatinine 0.65 (0.52-1.04) mg/dL Estimated GFR > 60.0 (>60) mL/min BUN/Creatinine Ratio 29.2 H (6-22) Glucose 118 H (80-110) mg/dL Hemoglobin A1c (4.0-6.0) % Lactate 1.2 (0.7-2.1) mmol/L Calcium 8.8 (8.4-10.2) mg/dL Ferritin (11-264) ng/mL Total Bilirubin 0.6 (0.2-1.3) mg/dL AST 41 H (14-36) IU/L ALT 14 (<35) IU/L Alkaline Phosphatase 54 (38-126) U/L Lactate Dehydrogenase (313-618) U/L NT-Pro-B Natriuret Pep 123 (<125) pg/mL Total Protein 7.5 (6.3-8.2) g/dL Albumin 3.9 (3.5-5.0) g/dL Globulin 3.6 (1.7-4.1) g/dL Albumin/Globulin Ratio 1.1 (1.0-2.8) 04/21/21 04/21/21 04/21/21 Range/Units 16:40 18:55 18:55 WBC (4.5-11.0) X10^3/uL RBC (4.0-5.2) X10^6/uL Hgb (12.0-16.0) g/dL Hct (36-46) % MCV (80-100) fL MCH (26-34) PG MCHC (30-36) % RDW (11.6-14.8) % Plt Count (150-400) X10^3/uL Neut % (Auto) (50-75) % Lymph % (Auto) (25-40) % [place] % (Auto) (3-14) % Eos % (Auto) (2-4) % Baso % (Auto) (0-2) % Neut # (Auto) (4049-1574) /uL Lymph # (Auto) (2446-5934) /uL [place] # (Auto) (0-900) /uL Eos # (Auto) (0-450) /uL Baso # (Auto) (0-100) /uL D-Dimer 600 H (<230) ng/mL Sodium (137-145) mmol/L Potassium (3.4-5.1) mmol/L Chloride (98-107) mmol/L Carbon Dioxide (22-32) mmol/L BUN (7-17) mg/dL Creatinine (0.52-1.04) mg/dL Estimated GFR (>60) mL/min BUN/Creatinine Ratio (6-22) Glucose (80-110) mg/dL Hemoglobin A1c 6.5 H (4.0-6.0) % Lactate (0.7-2.1) mmol/L Calcium (8.4-10.2) mg/dL Ferritin 142 (11-264) ng/mL Total Bilirubin (0.2-1.3) mg/dL AST (14-36) IU/L ALT (<35) IU/L Alkaline Phosphatase (38-126) U/L Lactate Dehydrogenase 744 H (313-618) U/L NT-Pro-B Natriuret Pep (<125) pg/mL Total Protein (6.3-8.2) g/dL Albumin (3.5-5.0) g/dL Globulin (1.7-4.1) g/dL Albumin/Globulin Ratio (1.0-2.8) Imaging Data Chest x-ray: Radiologist's Impression: Chart Viewer Diagnostics DATE TYPE STATUS REF RANGE/AUTHOR Hx Today 16:17 Adriane Perez 10/03/18 23:54 Delfin Haji 07/16/18 17:05 Delfin Haji 07/16/18 15:07 Melecio Ta Myra 61, F0 1960 [facility] ER, Main ED R08 170.18cm 88.451kg BMI: 30.5kg/m? Shortness of Breath/Dyspnea Search Chart No Data to Display Nausea No Data to Display Today 18:13 Agnes Faustin F [address] [id number] ReportSigned Patient: Singh Faustin#: [id number]: 1960Acct:[id number]/Sex: 61 / FDate of Service: 04/21/21Loc: EDAccession Number: [id number] Procedure: XR chest 1V Ordering Provider: Malika Oliver D.O. PROCEDURE: XR CHEST 1V INDICATIONS: shortness of breath TECHNIQUE: One view of the chest was acquired. COMPARISON: [facility], CT, CT ABDOMEN PELVIS W CON, 10/03/2018, 23:50. FINDINGS: Surgical changes and devices: Cervical fixation hardware is noted. Lungs and pleura: Patchy bibasilar opacities are present. There is trace blunting of the left costophrenic angle. Mediastinum: Lucency is noted posterior to the retrocardiac shadow most consistent with hiatal hernia. Heart size is borderline prominent. Bones and chest wall: No suspicious bony lesions. Overlying soft tissues appear unremarkable. IMPRESSION: Patchy bibasilar and retrocardiac opacities most consistent with pneumonia. Trace left effusion. Recommend interval follow-up to document resolution exclude presence of underlying mass lesion of potential malignant etiology. Dictated by: Adriane Perez M.D. on 04/21/2021 at 17:48 Approved by: Adriane Perez M.D. on 04/21/2021 at 17:49 Discharge Plan Departure Patient Disposition: Admitted As Inpatient Clinical Impression: Pneumonia due to COVID-19 virus Admit Date/Time: 04/21/21 20:51 Admit Provider: Ynes Wallace
[2021-04-21] MEDS: DEXAMETHASONE 10 MG/ML VIAL 6 MG IV (19:08)
[2021-04-21] MEDS: REMDESIVIR 200 MG in SODIUM CHLORIDE 0.9% 210 ML 250 ML IV (19:08)
[2021-04-21 19:13] LABS: D Dimer 600 ng/mL (<230); Lactate Dehydrogenase 744 U/L (313-618)
[2021-04-21 19:49] LABS: Ferritin 142 ng/mL (11-264)
--- NOTE | 2021-04-21 22:20 | PC.NURSE ---
Pt arrived to unit around 2144 via wheelchair. Pt alert and oriented x4, able to transfer to bed with moderate shortness of breath and productive coughing. Pt educated on importance of using incentive spirometer. On 2LNC, sats in the low 90s. Educated on unit policies and call light functions.
[2021-04-21 23:31] LABS: Hemoglobin A1C% w Est Avg Glu 6.5 % (4.0-6.0)
--- NOTE | 2021-04-21 23:40 | P.HP_ITS ---
History of Present Illness History of Present Illness Date Patient Seen: 04/21/21 Time Patient Seen: 22:30 Chief complaint: +covid test, fever for 8 days, SOB Narrative: Agnes Faustin is 61-year-old female nonsmoker with a history of diabetes, hypertension and hypothyroid presents with a chief complaint of fever, headache, sore throat, dry hacking cough and shortness of breath for the past few days. She also observed that her stool was soft ever since her suspected exposure, it she denies dysuria or constipation. She denies diabetic neuropathy. She has significant sleep apnea and uses CPAP at night. She states that her symptoms have been gradually worsening for the past 8 days. When she lost her sense of taste and smell, she had a COVID swab which was positive a few days ago. She denies any recent travel and believes that she likely was exposed from a member at her yarsanism group. She has not received the vaccine because she states she had mixed messages about people who could receive the vaccine and who could forego the use of masks and social distancing. She was recently laid off from the [employer] service. The patient has diabetes type 2 and believes her A1c is in the 6s. Her T-max was 100.4? and her temperature is currently 98.5?, blood pressure is 124/58 heart rate 57, respiratory rate of 26, oxygen saturation of 93% on 3 L, she weighs 91.9 kg with a BMI of 31.7. WBC is 6.7, RBC 3.99, hemoglobin 11.7, hematocrit 34.3, platelet count 275, his has lymphopenia of 900, D-dimer was elevated at 600, sodium 134, bicarb 20, BUN is 19, glucose 118, current hemoglobin A1c is 6.5, AST of 41, lactate dehydrogenase is 744, and obviously COVID-19 PCR is positive. Patient History Medical History Diabetes Hypertension Hypothyroid Surgical History No pertinent past surgical history Family & Social History Family History Father Congestive heart failure Mother Dementia Daughter Chromosomal abnormality Son MVA (motor vehicle accident) Social History: household members family Safety & Behavioral: Feels Safe in Current Yes Environment Been Physically Hurt or No Threatened By a Person Suicidal Ideation Description None Tobacco & Substance use: Smoking Status Never smoker alcohol intake frequency holiday/special occasion Substance Use Type does not use Meds Home Medications and Allergies Home Medications Medication Instructions Recorded Confirmed Type aspirin 81 mg PO DAILY 07/16/18 07/16/18 History gemfibrozil 600 mg PO BID 07/16/18 04/21/21 History hydrocodone-acetaminophen [[place]] 1 tab PO Q6H PRN #10 tab 07/16/18 Rx levothyroxine 1 tab PO DAILY 07/16/18 04/21/21 History lisinopril 20 mg PO DAILY 07/16/18 04/21/21 History metformin 500 mg PO DAILY 07/16/18 04/21/21 History pravastatin 40 mg PO DAILY 07/16/18 04/21/21 History venlafaxine 1 tab PO DAILY 07/16/18 07/16/18 History bupropion HCl mg PO 04/21/21 History levothyroxine 75 mcg PO DAILY 04/21/21 04/21/21 History venlafaxine 37.5 mg PO DAILY 04/21/21 04/21/21 History Allergies Allergy/AdvReac Type Severity Reaction Status Date / Time codeine AdvReac Intermediate Nausea Verified 04/21/21 16:12 Review of Systems Review of Systems ROS: Yes All systems reviewed with the patient and are negative except as otherwise documented Exam Vital Signs (past 8 hours): - 04/21/21 16:14 04/21/21 18:13 04/21/21 19:14 Temperature 100.4 F H Pulse Rate 73 61 Respiratory Rate 28 H Blood Pressure 131/63 Pulse Oximetry 92 88 L 94 04/21/21 19:16 04/21/21 19:30 04/21/21 20:00 Temperature Pulse Rate 63 62 64 Respiratory Rate Blood Pressure 131/63 130/58 L 140/63 Pulse Oximetry 94 94 95 04/21/21 20:30 04/21/21 22:19 04/21/21 22:55 Temperature 98.5 F 98.5 F Pulse Rate 65 57 L 54 L Respiratory Rate 32 H 22 Blood Pressure 126/58 L 124/58 L 124/58 L Pulse Oximetry 93 93 93 Oxygen Delivery Method Nasal Cannula Oxygen Flow Rate 3 Narrative Exam Narrative: Gen: Alert, oriented, well-developed 61 y.o. female, NAD HEENT: normocephalic, atraumatic, conjunctiva clear, sclera non-icteric, oral mucosa pink and moist Neck: supple, full ROM, no JVD, trachea is midline Resp: Lungs sounds deminished but clear, non-labored breathing CV: RRR, no murmur or rubs Abd: soft, non-tender, normoactive BTs Skin: no lesions or rashes, dry and intact Neuro: Alert and oriented X 4 w/no focal deficits. Speech clear and coherent. Extremities: moves all 4 extremities, is ambulatory, negative Suyapa?s sign Psyche: pleasant, normal mood and affect Objective Labs Result Diagrams: 04/21/21 16:40 04/21/21 16:40 Labs: Laboratory Results - last 24 hr 04/21/21 04/21/21 04/21/21 16:40 16:40 16:40 WBC 6.7 RBC 3.99 L Hgb 11.7 L Hct 34.3 L MCV 86.0 MCH 29.3 MCHC 34.0 RDW 14.0 Plt Count 275 Neut % (Auto) 83.1 H Lymph % (Auto) 13.0 L [place] % (Auto) 3.6 Eos % (Auto) 0.1 L Baso % (Auto) 0.2 Neut # (Auto) 5600 Lymph # (Auto) 900 L [place] # (Auto) 200 Eos # (Auto) 0 Baso # (Auto) 0 D-Dimer Sodium 134 L Potassium 4.5 Chloride 105 Carbon Dioxide 20 L BUN 19 H Creatinine 0.65 Estimated GFR > 60.0 BUN/Creatinine Ratio 29.2 H Glucose 118 H Hemoglobin A1c Lactate 1.2 Calcium 8.8 Ferritin Total Bilirubin 0.6 AST 41 H ALT 14 Alkaline Phosphatase 54 Lactate Dehydrogenase NT-Pro-B Natriuret Pep 123 Total Protein 7.5 Albumin 3.9 Globulin 3.6 Albumin/Globulin Ratio 1.1 04/21/21 04/21/21 04/21/21 16:40 18:55 18:55 WBC RBC Hgb Hct MCV MCH MCHC RDW Plt Count Neut % (Auto) Lymph % (Auto) [place] % (Auto) Eos % (Auto) Baso % (Auto) Neut # (Auto) Lymph # (Auto) [place] # (Auto) Eos # (Auto) Baso # (Auto) D-Dimer 600 H Sodium Potassium Chloride Carbon Dioxide BUN Creatinine Estimated GFR BUN/Creatinine Ratio Glucose Hemoglobin A1c 6.5 H Lactate Calcium Ferritin 142 Total Bilirubin AST ALT Alkaline Phosphatase Lactate Dehydrogenase 744 H NT-Pro-B Natriuret Pep Total Protein Albumin Globulin Albumin/Globulin Ratio Assessment & Plan Assessment & Plan narrative: Agnes Faustin is a 61-year-old female who will be symptomatic COVID-19 pneumonia. 1. Symptomatic COVID-19 pneumonia * She received IV Decadron 200 mg in the ED and will start IV Decadron 100 mg on the morning of April 22 * She received IV dexamethasone 6 mg in the ED and will continue this for 5 more days. * Consider azithromycin if her cough becomes productive or she develops worsening suspected bacterial pneumonia * RT to assess and treat 2. Diabetes type 2, well controlled * Oral anti diabetics are held and she will receive low-dose correctional insulin with ACHS glucose testing * Carb controlled diet 3. Essential hypertension, appears to be well controlled * Continue lisinopril 20 mg p.o. daily and aspirin 81 mg p.o. daily 4. Depression, chronic and stable * Continue home dose of venlafaxine VTE prophylaxis: Wells risk score: 3 Enoxaparin 40 mg subQ daily Consults: none Patient is admitted under inpatient status with expected length of stay greater than 2 midnights due to severity of presenting symptoms, risk of adverse event, and complexity of treatment plan. FEN: IV saline lock, carb controlled diet, BMP and magnesium in the am. Dispo: Probable discharge to home Code Status: as discussed with patient Gena Morales, daughter and surrogate/POA COVID-19 COVID-19 status: Positive Result date/Date tested (Pos, Neg/Pending): 04/21/21 Scores Wells' Criteria for PE Clinical signs and symptoms of DVT: Yes PE is #1 Dx or equally likely: No Heart rate > 100: No Immobilization at least 3 days or surg in previous 4 weeks: No History of PE or DVT: No Hemoptysis: No Malignancy w/Treatment within 6 months or palliative: No Wells' PE Score total: 3 Quality MIPS - Admit I confirm the patient?s Advance Care Plan is present, Code status is documented, Surrogate decision maker is in patient?s record [If Yes, STOP here]: Yes
[2021-04-22] VITALS (10 sets, daily range): BP systolic 112–149; BP diastolic 58–72; PULSE 42–63; RESP 16–28; TEMP 35.6–36.6; O2SAT 90–93
--- NOTE | 2021-04-22 00:11 | RT ---
Assessed pt at 2350 on 04/21. Pt is here for COVID+ PNA. Pt is on 3 LPM NC, RR 27, SpO2 93%. BS clear and slightly diminished t/o. Pt has no pulmonary hx but states she has IMELDA and uses CPAP at home. Per current RT protocol for IMELDA pts, place EtCO2 monitor and NC. RN aware. Recommending O2 therapy as needed, IS instruction, and deep breathing education for pt. Per EDUCATION PROFESSOR Rodrigo, KSA > 94%.
[2021-04-22] MEDS: INSULIN LISPRO 100 UNIT/ML 3ML VIAL SUBCUT ×5 (01:17→21:48)
--- NOTE | 2021-04-22 04:37 | PC.NURSE ---
Addendum entered by Meliza Arreaga R.N. 04/22/21 06:52: States she is feeling so much better this morning. Up to BSC and when getting back to bed O2 sats did drop down to 83% but had recovery time of < 15 seconds. Urine is dark amairani this morning. Original Note: Patient is alert and oriented. Breath sounds coarse in left LL and has coarse crackles in right mid/lower lobes. On oxygen at 3L/min per NC with sat of 93%. Has moist intermittent cough but states she swallows what she coughs up so unknown what color/consistency is. Does have nasal congestion and sore throat. Noted when asleep that she has periods of apnea consistent with sleep apnea; RT states they have advised her to have home CPAP brought in. Does get SOB when getting up to BSC/back to bed but denies SOB at rest. HRR but bradycardic at 52 bpm and telemetry reading was SB. Denies nausea. BT hypoactive but states she is passing flatus and abdomen is soft. Denies dysuria, frequency or urgency with urination. Is able to turn herself in bed. Up to BSC with SBA for safety. Denied pain at time of assessment. CBG was 242 and was given 1 unit of insulin per PAVER OPERATOR order. Fall risk score is high (patient reports having fallen in past 3 months) and bed alarm is activated. On droplet w/aersolizing precautions as is covid positive.
[2021-04-22 05:03] LABS: Add Manual Diff / Slide Review NO; Basophils Absolute Auto 100 /uL (0-100); Basophils Percent Auto 1.4 % (0-2); Eosinophils Absolute Auto 0 /uL (0-450); Eosinophils Percent Auto 0.2 % (2-4); Hematocrit 36.2 % (36-46); Hemoglobin 12.3 g/dL (12.0-16.0); Lymphocytes Absolute Auto 700 /uL (1100-4500); Lymphocytes Percent Auto 9.8 % (25-40); Mean Corpuscular Hemoglobin 29.3 PG (26-34); Mean Corpuscular Volume 86.4 fL (80-100); Monocytes Absolute Auto 200 /uL (0-900); Monocytes Percent Auto 2.6 % (3-14); Neutrophils Absolute Auto 5800 /uL (1500-7000); Platelet Count 290 X10^3/uL (150-400); Red Blood Cell Count 4.19 X10^6/uL (4.0-5.2); Red Cell Distribution Width 13.9 % (11.6-14.8); White Blood Cell Count 6.7 X10^3/uL (4.5-11.0)
[2021-04-22 05:18] LABS: BUN Creatinine Ratio 28.6 (6-22); Blood Urea Nitrogen 16 mg/dL (7-17); Calcium 9.2 mg/dL (8.4-10.2); Carbon Dioxide 24 mmol/L (22-32); Chloride 107 mmol/L (98-107); Estimated Glomerular Filt Rate > 60.0 mL/min (>60); Glucose 197 mg/dL (80-110); HEMOLYSIS < 15 (0-50); Magnesium 2.2 mg/dL (1.6-2.3); Potassium 4.3 mmol/L (3.4-5.1); Sodium 139 mmol/L (137-145)
[2021-04-22] MEDS: LEVOTHYROXINE 75 MCG TABLET PO (06:38)
[2021-04-22] MEDS: ASPIRIN EC 81 MG TABLET PO (09:52)
[2021-04-22] MEDS: DEXAMETHASONE 10 MG/ML VIAL 6 MG IV (09:52)
[2021-04-22] MEDS: SODIUM CHLORIDE 0.9% FLUSH 10 ML IV ×2 (09:53→21:42)
[2021-04-22] MEDS: VENLAFAXINE ER 37.5 MG CAP 75 MG PO (10:30)
--- NOTE | 2021-04-22 11:01 | PC.NURSE ---
Am shift Pt is sitting upright with 3L NC in place, productive cough. Tires with any activity, but recovers quickly with rest. Visable increased to RR with even just bed mobility. Tolerating PO diet. Home CPAP provided, and at bedside for use on NOC. Pt expresses anxiety r/t pending Move out of state, assisted with getting movers delayed, and Pt is feeling better by lunch. It's a few things I can cross off my to do list Reassured. Lungs remain coarse, with occasional crackles to bases, these imprive with DB & C, encouraging this and I.S use at bedside.
[2021-04-22] MEDS: PRAVASTATIN 20 MG TABLET 40 MG PO (12:00)
[2021-04-22] MEDS: gemfibroziL 600 MG TABLET PO ×2 (13:07→21:42)
[2021-04-22] MEDS: ENOXAPARIN 40 MG/0.4 ML SYRINGE SUBCUT (13:08)
--- NOTE | 2021-04-22 13:44 | P.PN_ITS ---
Subjective Subjective Date Patient Seen: 04/22/21 Time Patient Seen: 08:47 Interval history: Today she feels weak. She still feels short of breath, but she feels better now that she is on oxygen. Otherwise she is having a cough, but no other complaints. Exam Vital Signs (past 8 hours): - 04/22/21 07:30 04/22/21 07:52 04/22/21 10:53 Temperature 96.8 F L Pulse Rate 49 L 42 L Respiratory Rate 18 Blood Pressure 113/65 112/61 Pulse Oximetry 93 93 04/22/21 11:00 Temperature 96.1 F L Pulse Rate 51 L Respiratory Rate 22 Blood Pressure 136/63 Pulse Oximetry 90 L Oxygen Delivery Method Nasal Cannula Oxygen Flow Rate 3 Narrative Exam Narrative: Gen: no acute distress Resp: decreased breath sounds, coarse cough CV: regular rate and rhythm, with no murmurs Abd: soft, non-tender, normal bowel sounds Skin: no lesions or rashes, dry and intact Neuro: alert and oriented, no focal deficits Psyche: pleasant, normal mood and affect Objective Labs Result Diagrams: 04/22/21 04:46 04/22/21 04:46 Labs: Laboratory Results - last 24 hr 04/21/21 04/21/21 04/21/21 16:40 16:40 16:40 WBC 6.7 RBC 3.99 L Hgb 11.7 L Hct 34.3 L MCV 86.0 MCH 29.3 MCHC 34.0 RDW 14.0 Plt Count 275 Neut % (Auto) 83.1 H Lymph % (Auto) 13.0 L [place] % (Auto) 3.6 Eos % (Auto) 0.1 L Baso % (Auto) 0.2 Neut # (Auto) 5600 Lymph # (Auto) 900 L [place] # (Auto) 200 Eos # (Auto) 0 Baso # (Auto) 0 D-Dimer Sodium 134 L Potassium 4.5 Chloride 105 Carbon Dioxide 20 L BUN 19 H Creatinine 0.65 Estimated GFR > 60.0 BUN/Creatinine Ratio 29.2 H Glucose 118 H Hemoglobin A1c Lactate 1.2 Calcium 8.8 Magnesium Ferritin Total Bilirubin 0.6 AST 41 H ALT 14 Alkaline Phosphatase 54 Lactate Dehydrogenase NT-Pro-B Natriuret Pep 123 Total Protein 7.5 Albumin 3.9 Globulin 3.6 Albumin/Globulin Ratio 1.1 Nasal Screen MRSA (PCR) 04/21/21 04/21/21 04/21/21 16:40 18:55 18:55 WBC RBC Hgb Hct MCV MCH MCHC RDW Plt Count Neut % (Auto) Lymph % (Auto) [place] % (Auto) Eos % (Auto) Baso % (Auto) Neut # (Auto) Lymph # (Auto) [place] # (Auto) Eos # (Auto) Baso # (Auto) D-Dimer 600 H Sodium Potassium Chloride Carbon Dioxide BUN Creatinine Estimated GFR BUN/Creatinine Ratio Glucose Hemoglobin A1c 6.5 H Lactate Calcium Magnesium Ferritin 142 Total Bilirubin AST ALT Alkaline Phosphatase Lactate Dehydrogenase 744 H NT-Pro-B Natriuret Pep Total Protein Albumin Globulin Albumin/Globulin Ratio Nasal Screen MRSA (PCR) 04/21/21 04/22/21 04/22/21 22:45 04:46 04:46 WBC 6.7 RBC 4.19 Hgb 12.3 Hct 36.2 MCV 86.4 MCH 29.3 MCHC 34.0 RDW 13.9 Plt Count 290 Neut % (Auto) 86.0 H Lymph % (Auto) 9.8 L [place] % (Auto) 2.6 L Eos % (Auto) 0.2 L Baso % (Auto) 1.4 Neut # (Auto) 5800 Lymph # (Auto) 700 L [place] # (Auto) 200 Eos # (Auto) 0 Baso # (Auto) 100 D-Dimer Sodium 139 Potassium 4.3 Chloride 107 Carbon Dioxide 24 BUN 16 Creatinine 0.56 Estimated GFR > 60.0 BUN/Creatinine Ratio 28.6 H Glucose 197 H Hemoglobin A1c Lactate Calcium 9.2 Magnesium 2.2 Ferritin Total Bilirubin AST ALT Alkaline Phosphatase Lactate Dehydrogenase NT-Pro-B Natriuret Pep Total Protein Albumin Globulin Albumin/Globulin Ratio Nasal Screen MRSA (PCR) Negative for mrsa [facility] Medical History Diabetes Hypertension Hypothyroid Surgical History No pertinent past surgical history Family History Father Congestive heart failure Mother Dementia Daughter Chromosomal abnormality Son MVA (motor vehicle accident) Social History household members: family Smoking Status: Never smoker Assessment & Plan Assessment & Plan narrative: Ms. Faustin is a 61w with PMH DM, depression, HTN who comes in with acute respiratory failure secondary to COIVD pneumonia. 1. Acute hypoxemic respiratory failure secondary to COVID pneumonia -currently requiring 2-3L of oxygen -she received IV Decadron 200 mg in the ED and will start IV Decadron 100 mg on the morning of April 22 -she received IV dexamethasone 6 mg in the ED and will continue while hospitalized 2. Diabetes type 2, well controlled -oral anti diabetics are held and she will receive low-dose correctional insulin with ACHS glucose testing -diabetic diet 3. Essential hypertension, appears to be well controlled -hold lisinopril for now with acute infection 4. Depression, chronic and stable Continue home dose of venlafaxine VTE prophylaxis: Enoxaparin 40 mg subQ daily Consults: none Patient is admitted under inpatient status with expected length of stay greater than 2 midnights due to severity of presenting symptoms, risk of adverse event, and complexity of treatment plan. FEN: IV saline lock, carb controlled diet Code Status: Full and Gena Morales, daughter and surrogate/POA
[2021-04-22] MEDS: REMDESIVIR 100 MG in SODIUM CHLORIDE 0.9% 230 ML 250 ML IV (17:03)
--- NOTE | 2021-04-22 21:28 | PC.NURSE ---
Patient oxygen saturations maintaining on 3LNC, holding at 90-93% for duration of shift. When pt gets up to use bedside commode o2 dips down to mid 80s, but pt recovers quickly (within 2 minutes). Pt had mild episode of epistaxis at 2115, self-resolving within 10 minutes. Pt v/s stable, sinus srinath in the 50s. Pt educated on importance of using IS, deep breathing and coughing, proning and side-lying while in bed.
[2021-04-23] VITALS (7 sets, daily range): BP systolic 128–154; BP diastolic 60–74; PULSE 49–70; RESP 24–28; TEMP 36.6–36.9; O2SAT 90–98
[2021-04-23 05:01] LABS: Add Manual Diff / Slide Review NO; Basophils Absolute Auto 0 /uL (0-100); Basophils Percent Auto 0.4 % (0-2); Eosinophils Absolute Auto 0 /uL (0-450); Eosinophils Percent Auto 0.3 % (2-4); Hematocrit 34.4 % (36-46); Hemoglobin 11.5 g/dL (12.0-16.0); Lymphocytes Absolute Auto 1500 /uL (1100-4500); Lymphocytes Percent Auto 12.5 % (25-40); Mean Corpuscular HGB Conc 33.5 % (30-36); Mean Corpuscular Hemoglobin 28.9 PG (26-34); Mean Corpuscular Volume 86.5 fL (80-100); Monocytes Absolute Auto 700 /uL (0-900); Monocytes Percent Auto 5.6 % (3-14); Neutrophils Absolute Auto 9600 /uL (1500-7000); Neutrophils Percent Auto 81.2 % (50-75); Platelet Count 334 X10^3/uL (150-400); Red Blood Cell Count 3.98 X10^6/uL (4.0-5.2); Red Cell Distribution Width 13.9 % (11.6-14.8); White Blood Cell Count 11.8 X10^3/uL (4.5-11.0)
[2021-04-23 05:08] LABS: BUN Creatinine Ratio 49.2 (6-22); Blood Urea Nitrogen 31 mg/dL (7-17); Calcium 9.6 mg/dL (8.4-10.2); Carbon Dioxide 25 mmol/L (22-32); Chloride 107 mmol/L (98-107); Estimated Glomerular Filt Rate > 60.0 mL/min (>60); Glucose 165 mg/dL (80-110); HEMOLYSIS 31 (0-50); Magnesium 2.3 mg/dL (1.6-2.3); Potassium 4.6 mmol/L (3.4-5.1); Sodium 139 mmol/L (137-145)
[2021-04-23] MEDS: LEVOTHYROXINE 75 MCG TABLET PO (06:21)
[2021-04-23] MEDS: DEXAMETHASONE 10 MG/ML VIAL 6 MG IV (09:59)
[2021-04-23] MEDS: PRAVASTATIN 20 MG TABLET 40 MG PO (09:59)
[2021-04-23] MEDS: ENOXAPARIN 40 MG/0.4 ML SYRINGE SUBCUT (09:59)
[2021-04-23] MEDS: ASPIRIN EC 81 MG TABLET PO (10:00)
[2021-04-23] MEDS: SODIUM CHLORIDE 0.9% FLUSH 10 ML IV ×2 (10:01→20:54)
[2021-04-23] MEDS: VENLAFAXINE ER 37.5 MG CAP 75 MG PO (10:01)
[2021-04-23] MEDS: gemfibroziL 600 MG TABLET PO ×2 (10:03→20:54)
[2021-04-23] MEDS: INSULIN LISPRO 100 UNIT/ML 3ML VIAL SUBCUT ×3 (13:03→20:54)
--- NOTE | 2021-04-23 15:56 | CM.IDA ---
Initial DCP Assessment Note Pt is a 61 yo female, resident of [place] (?) Patient w/[place] address, has been living and working on [facility], recently laid off from her job and planning on moving. PCP: Percy Pereira Payer: Out of State [employer] Reviewed chart, pt discussed in multidisciplinary rounds this morning. Patient is slowly improving, team expects patient to DC home w/friends upon DC D/t triage needs, unable to complete phone assessment w/patient. SLD TEACHER team will plan to follow closely in case any DC needs or concerns arise before medical DC BULMARO Coburn
--- NOTE | 2021-04-23 17:12 | PM.PN.1 ---
Subjective Subjective Date Patient Seen: 04/23/21 Time Patient Seen: 08:12 Interval history: Today she feels mildly improved. Still feeling like she can't take a deep breath. Still coughing when she tries to take a deep breath, but thinks less short of breath today. Exam Vital Signs (past 8 hours): - 04/23/21 09:34 04/23/21 12:45 04/23/21 15:00 Temperature 98.4 F 98.0 F Pulse Rate 58 L 54 L Respiratory Rate 28 H 24 Blood Pressure 146/67 H 128/63 Pulse Oximetry 98 93 93 Oxygen Delivery Method Nasal Cannula Oxygen Flow Rate 3 Narrative Exam Narrative: Gen: no acute distress Resp: decreased breath sounds, coarse cough CV: regular rate and rhythm, with no murmurs Abd: soft, non-tender, normal bowel sounds Skin: no lesions or rashes, dry and intact Neuro: alert and oriented, no focal deficits Psyche: pleasant, normal mood and affect Objective Labs Result Diagrams: 04/23/21 04:37 04/23/21 04:37 Labs: Laboratory Results - last 24 hr 04/23/21 04/23/21 04:37 04:37 WBC 11.8 H D RBC 3.98 L Hgb 11.5 L Hct 34.4 L MCV 86.5 MCH 28.9 MCHC 33.5 RDW 13.9 Plt Count 334 Neut % (Auto) 81.2 H Lymph % (Auto) 12.5 L Saline % (Auto) 5.6 Eos % (Auto) 0.3 L Baso % (Auto) 0.4 Neut # (Auto) 9600 H Lymph # (Auto) 1500 Saline # (Auto) 700 Eos # (Auto) 0 Baso # (Auto) 0 Sodium 139 Potassium 4.6 Chloride 107 Carbon Dioxide 25 BUN 31 H Creatinine 0.63 Estimated GFR > 60.0 BUN/Creatinine Ratio 49.2 H Glucose 165 H Calcium 9.6 Magnesium 2.3 PFSH Medical History Diabetes Hypertension Hypothyroid Surgical History No pertinent past surgical history Family History Father Congestive heart failure Mother Dementia Daughter Chromosomal abnormality Son MVA (motor vehicle accident) Social History household members: family Smoking Status: Never smoker Assessment & Plan Assessment & Plan narrative: Ms. Faustin is a 61w with PMH DM, depression, HTN who comes in with acute respiratory failure secondary to COVID pneumonia. 1. Acute hypoxemic respiratory failure secondary to COVID pneumonia -currently requiring 2-3L of oxygen -she received IV Decadron 200 mg in the ED and will start IV Decadron 100 mg on the morning of April 22 -she received IV dexamethasone 6 mg in the ED and will continue while hospitalized 2. Diabetes type 2, well controlled -oral anti diabetics are held and she will receive low-dose correctional insulin with ACHS glucose testing -diabetic diet 3. Essential hypertension, appears to be well controlled -hold lisinopril for now with acute infection 4. Depression, chronic and stable Continue home dose of venlafaxine VTE prophylaxis: Enoxaparin 40 mg subQ daily Consults: none Patient is admitted under inpatient status with expected length of stay greater than 2 midnights due to severity of presenting symptoms, risk of adverse event, and complexity of treatment plan. FEN: IV saline lock, carb controlled diet Code Status: Full and Gena Morales, daughter and surrogate/POA
[2021-04-23] MEDS: REMDESIVIR 100 MG in SODIUM CHLORIDE 0.9% 230 ML 250 ML IV (17:58)
--- NOTE | 2021-04-23 21:29 | PC.NURSE ---
Patient did well this shift on 3LNC, with oxygen saturations ranging from 92-96%. Patient has been using IS and is coughing up and swallowing sputum. Started to move bedside commode further away from the bed to encourage more ambulation for pt. Pt sats drop down to 84% when ambulating, but recover back above 90% in less than 2 minutes. Pt has been encouraged and educated on the importance of proning and side-lying positions to help increase oxygen saturations.Pt voiding adequately, other v/s stable, sinus bradycardia. Pt placed on personal cpap machine at 2114.
[2021-04-24] VITALS (9 sets, daily range): BP systolic 146–174; BP diastolic 67–80; PULSE 47–89; RESP 16–32; TEMP 36.6–37; O2SAT 90–98
[2021-04-24 06:20] LABS: BUN Creatinine Ratio 39.3 (6-22); Blood Urea Nitrogen 24 mg/dL (7-17); Calcium 9.4 mg/dL (8.4-10.2); Carbon Dioxide 25 mmol/L (22-32); Chloride 108 mmol/L (98-107); Estimated Glomerular Filt Rate > 60.0 mL/min (>60); Glucose 144 mg/dL (80-110); HEMOLYSIS < 15 (0-50); Potassium 4.5 mmol/L (3.4-5.1); Sodium 139 mmol/L (137-145)
[2021-04-24 06:38] LABS: Hematocrit 34.3 % (36-46); Hemoglobin 11.7 g/dL (12.0-16.0); Mean Corpuscular Hemoglobin 29.2 PG (26-34); Mean Corpuscular Volume 86.1 fL (80-100); Platelet Count 398 X10^3/uL (150-400); Red Blood Cell Count 3.99 X10^6/uL (4.0-5.2); Red Cell Distribution Width 13.7 % (11.6-14.8); White Blood Cell Count 9.7 X10^3/uL (4.5-11.0)
[2021-04-24] MEDS: gemfibroziL 600 MG TABLET PO ×2 (08:42→22:18)
[2021-04-24] MEDS: LEVOTHYROXINE 75 MCG TABLET PO (08:44)
[2021-04-24] MEDS: ASPIRIN EC 81 MG TABLET PO (08:44)
[2021-04-24] MEDS: PRAVASTATIN 20 MG TABLET 40 MG PO (08:44)
[2021-04-24] MEDS: DEXAMETHASONE 10 MG/ML VIAL 6 MG IV (08:44)
[2021-04-24] MEDS: ACETAMINOPHEN 325 MG TABLET 650 MG PO (08:44)
[2021-04-24] MEDS: VENLAFAXINE ER 37.5 MG CAP 75 MG PO (08:44)
[2021-04-24] MEDS: SODIUM CHLORIDE 0.9% FLUSH 10 ML IV ×2 (08:45→22:21)
[2021-04-24] MEDS: ENOXAPARIN 40 MG/0.4 ML SYRINGE SUBCUT (08:45)
[2021-04-24 11:24] LABS: COVID19 - ADMIT (NP swab/PCR) POSITIVE (Negative)
[2021-04-24] MEDS: INSULIN LISPRO 100 UNIT/ML 3ML VIAL SUBCUT ×3 (12:35→22:18)
--- NOTE | 2021-04-24 13:46 | CM.DANOTE ---
DCP ASSESSMENT: Patient is a 61 year-old female admitted for COVID-19. PCP is Percy Pereira. Primary payer is [employer] State [employer]. GEOLOGY TEACHER Student called and spoke with patient this date she is alert and oriented. Provided education on the role of social work in discharge planning. Patient is currently living in [place], [place] until Wednesday April 28, 2021 she will then be leaving town to move to [place]. Her daughter Leslie Morales will be in town 04/25/21 to help with moving. Patient is COVID-19 positive and instructed to follow-up with [facility] Department regarding guidelines to move/travel out of [facility] while testing positive. Patient is independent at baseline to include driving and she is the primary caregiver for her daughter who has special needs. Patient requested a list of hotels in the [place] area. Provided patient with a list of hotels. PLAN: Anticipate D/C home when medically stable. Provided patient with a list of hotels in [place]. BULMARO Hull MSW Student Discharge Planning/Care Management CM Discharge Assessment Start: 04/24/21 10:59 Freq: Status: Active Protocol: Document 04/24/21 10:59 AL (Rec: 04/24/21 11:03 AL [id number]) Discharge Planning Assessment Assigned Machinist Apprentice Wood BULMARO Hickman Student Contact Information Leslie Morales Advance Directives? No History Provided By Patient,Medical Record Has Patient been admitted in last 30 No days? Prior Living Arrangements House Household Members family Type of transporation used prior to Drives own vehicle admit Independent with ADL's Yes Is patient alert and oriented? Yes Caregiver for Another Yes: She cares for her daughter who has special needs . Barriers to Discharge No Discharge Plan Home Transportation Arrangement Patient's older daughter Leslie will be in the area to help provide transpostation. Patient plans on moving to [facility]. Whiteboard Updated in Patient Room with Yes name and ext. # of Machinist Apprentice Wood Review Status In Process
--- NOTE | 2021-04-24 15:31 | PM.PN.1 ---
Subjective Subjective Date Patient Seen: 04/24/21 Time Patient Seen: 15:31 Interval history: Today she feels improved. Continues to have cough but feels like she is breathing a bit better. Currently down to 2 L via nasal cannula and improving. Exam Vital Signs (past 8 hours): - 04/24/21 08:00 04/24/21 09:00 04/24/21 12:00 Temperature 98.6 F 97.8 F Pulse Rate 68 50 L Respiratory Rate 20 20 Blood Pressure 162/74 H 147/67 H Pulse Oximetry 96 90 L 98 04/24/21 14:07 Temperature Pulse Rate 54 L Respiratory Rate 32 H Blood Pressure Pulse Oximetry 98 Oxygen Delivery Method Nasal Cannula Oxygen Flow Rate 2 Narrative Exam Narrative: Gen: no acute distress Resp: decreased breath sounds, bibasilar crackles CV: regular rate and rhythm, with no murmurs Abd: soft, non-tender, normal bowel sounds Skin: no lesions or rashes, dry and intact Neuro: alert and oriented, no focal deficits Psyche: pleasant, normal mood and affect Objective Labs Result Diagrams: 04/24/21 04:40 04/24/21 04:40 Labs: Laboratory Results - last 24 hr 04/24/21 04/24/21 04/24/21 04:40 04:40 10:11 WBC 9.7 RBC 3.99 L Hgb 11.7 L Hct 34.3 L MCV 86.1 MCH 29.2 MCHC 34.0 RDW 13.7 Plt Count 398 Sodium 139 Potassium 4.5 Chloride 108 H Carbon Dioxide 25 BUN 24 H Creatinine 0.61 Estimated GFR > 60.0 BUN/Creatinine Ratio 39.3 H Glucose 144 H Calcium 9.4 SARS-CoV-2 (PCR) Positive H PFSH Medical History Diabetes Hypertension Hypothyroid Surgical History No pertinent past surgical history Family History Father Congestive heart failure Mother Dementia Daughter Chromosomal abnormality Son MVA (motor vehicle accident) Social History household members: family Smoking Status: Never smoker Assessment & Plan Assessment & Plan narrative: Ms. Faustin is a 61w with PMH DM, depression, HTN who comes in with acute respiratory failure secondary to COVID pneumonia. 1. Acute hypoxemic respiratory failure secondary to COVID pneumonia -currently requiring 2-3L of oxygen, appears to potentially be improving -she received IV Decadron 200 mg in the ED and will continue on IV Decadron 100 mg -she received IV dexamethasone 6 mg in the ED and will continue while hospitalized. 2. Diabetes type 2, well controlled -oral anti diabetics are held and she will receive low-dose correctional insulin with ACHS glucose testing -diabetic diet 3. Essential hypertension, appears to be well controlled -held lisinopril initially, will restart tomorrow. 4. Depression, chronic and stable Continue home dose of venlafaxine VTE prophylaxis: Enoxaparin 40 mg subQ daily Consults: none Patient is admitted under inpatient status FEN: IV saline lock, carb controlled diet Code Status: Full and Gena Morales, daughter and surrogate/POA
[2021-04-24] MEDS: REMDESIVIR 100 MG in SODIUM CHLORIDE 0.9% 230 ML 250 ML IV (17:32)
[2021-04-25 02:50] VITALS: BP 164/71; PULSE 48; RESP 24; TEMP 36.8; O2SAT 94
[2021-04-25 06:00] VITALS: BP 154/70; PULSE 58; RESP 22; TEMP 36.3; O2SAT 94
[2021-04-25] MEDS: LEVOTHYROXINE 75 MCG TABLET PO (06:52)
--- NOTE | 2021-04-25 07:40 | PC.NURSE ---
Intranet Specialist Note-Patient slept throughout night with her own C-pap and 2L O2 bleed-in, SpO2 92-97%, desat to 80% when ambulated into BR, recovered quickly when NC placed on, denies shortness of breath or dyspnea, minimal dry cough.
[2021-04-25 08:00] VITALS: BP 161/74; PULSE 58; RESP 20; TEMP 36.9; O2SAT 95
[2021-04-25 08:01] LABS: Alanine Aminotransferase 14 IU/L (<35); Albumin 3.4 g/dL (3.5-5.0); Alkaline Phosphatase 58 U/L (38-126); Aspartate Aminotransferase 29 IU/L (14-36); BUN Creatinine Ratio 32.8 (6-22); Bilirubin Total 0.4 mg/dL (0.2-1.3); Bilirubin Unconjugated 0.2 mg/dL (0.0-1.1); Blood Urea Nitrogen 19 mg/dL (7-17); Calcium 9.4 mg/dL (8.4-10.2); Carbon Dioxide 26 mmol/L (22-32); Chloride 106 mmol/L (98-107); Estimated Glomerular Filt Rate > 60.0 mL/min (>60); Globulin 3.5 g/dL (1.7-4.1); Glucose 96 mg/dL (80-110); HEMOLYSIS < 15 (0-50); Lactate Dehydrogenase 813 U/L (313-618); Potassium 4.2 mmol/L (3.4-5.1); Sodium 140 mmol/L (137-145); Total Protein 6.9 g/dL (6.3-8.2)
[2021-04-25 08:04] LABS: Hematocrit 35.3 % (36-46); Hemoglobin 11.8 g/dL (12.0-16.0); Mean Corpuscular HGB Conc 33.6 % (30-36); Mean Corpuscular Hemoglobin 28.9 PG (26-34); Mean Corpuscular Volume 86.1 fL (80-100); Platelet Count 455 X10^3/uL (150-400); Red Blood Cell Count 4.09 X10^6/uL (4.0-5.2); Red Cell Distribution Width 13.7 % (11.6-14.8); White Blood Cell Count 10.1 X10^3/uL (4.5-11.0)
[2021-04-25 08:09] LABS: Add Manual Diff / Slide Review YES
[2021-04-25 08:31] LABS: Neutrophils Absolute Manual 4949 /uL (3000-5900); Nucleated Red Blood Cells 1 #/Diff; Polychromasia 1+; Total Cells Counted 100
[2021-04-25] MEDS: SODIUM CHLORIDE 0.9% FLUSH 10 ML IV ×2 (09:36→21:40)
[2021-04-25] MEDS: lisinopriL 20 MG TABLET PO (09:36)
[2021-04-25] MEDS: DEXAMETHASONE 10 MG/ML VIAL 6 MG IV (09:36)
[2021-04-25] MEDS: gemfibroziL 600 MG TABLET PO ×2 (09:36→21:40)
[2021-04-25] MEDS: ASPIRIN EC 81 MG TABLET PO (09:36)
[2021-04-25] MEDS: ENOXAPARIN 40 MG/0.4 ML SYRINGE SUBCUT (09:36)
[2021-04-25] MEDS: VENLAFAXINE ER 37.5 MG CAP 75 MG PO (09:43)
[2021-04-25] MEDS: PRAVASTATIN 20 MG TABLET 40 MG PO (09:43)
--- NOTE | 2021-04-25 11:49 | P.PN_ITS ---
Subjective Subjective Date Patient Seen: 04/25/21 Time Patient Seen: 11:49 Interval history: Today she feels improved. Continues to have cough but feels like she is breathing a bit better. Occasionally off of oxygen but with activity O2 sats drop to 80 on room air. Improves quickly to low 80s at rest, but requires 2 L after activity to maintain >90%. Exam Vital Signs (past 8 hours): - 04/25/21 06:00 04/25/21 08:00 Temperature 97.4 F L 98.4 F Pulse Rate 58 L 58 L Respiratory Rate 22 20 Blood Pressure 154/70 H 161/74 H Pulse Oximetry 94 95 Oxygen Delivery Method Nasal Cannula Oxygen Flow Rate 2.5 Narrative Exam Narrative: Gen: no acute distress Resp: decreased breath sounds, bibasilar crackles CV: regular rate and rhythm, with no murmurs Abd: soft, non-tender, normal bowel sounds Skin: no lesions or rashes, dry and intact Neuro: alert and oriented, no focal deficits Psyche: pleasant, normal mood and affect Objective Labs Result Diagrams: 04/25/21 07:33 04/25/21 07:33 Labs: Laboratory Results - last 24 hr 04/25/21 04/25/21 07:33 07:33 WBC 10.1 RBC 4.09 Hgb 11.8 L Hct 35.3 L MCV 86.1 MCH 28.9 MCHC 33.6 RDW 13.7 Plt Count 455 H Neut % (Auto) Not Reportable Lymph % (Auto) Not Reportable [place] % (Auto) Not Reportable Eos % (Auto) Not Reportable Baso % (Auto) Not Reportable Lymph # (Auto) Not Reportable [place] # (Auto) Not Reportable Baso # (Auto) Not Reportable Total Counted 100 Seg Neutrophils % 47.0 Band Neutrophils % 2.0 L Lymphocytes % (Manual) 42.0 Atypical Lymphs % 2.0 H Monocytes % (Manual) 6.0 Eosinophils % (Manual) 1.0 L Neutrophils # (Manual) 4949 Nucleated RBCs 1 H RBC Morphology Not Reportable Polychromasia 1+ H Sodium 140 Potassium 4.2 Chloride 106 Carbon Dioxide 26 BUN 19 H Creatinine 0.58 Estimated GFR > 60.0 BUN/Creatinine Ratio 32.8 H Glucose 96 Calcium 9.4 Total Bilirubin 0.4 Conjugated Bilirubin 0.0 Unconjugated Bilirubin 0.2 AST 29 ALT 14 Alkaline Phosphatase 58 Lactate Dehydrogenase 813 H Total Protein 6.9 Albumin 3.4 L Globulin 3.5 Albumin/Globulin Ratio 1.0 PFSH Medical History Diabetes Hypertension Hypothyroid Surgical History No pertinent past surgical history Family History Father Congestive heart failure Mother Dementia Daughter Chromosomal abnormality Son MVA (motor vehicle accident) Social History household members: family Smoking Status: Never smoker Assessment & Plan Assessment & Plan narrative: Ms. Faustin is a 61w with PMH DM, depression, HTN who comes in with acute respiratory failure secondary to COVID pneumonia. 1. Acute hypoxemic respiratory failure secondary to COVID pneumonia -currently requiring 2-3L of oxygen but mainly with activity, occasionally off at rest. Continue to wean as tolerated. -she received IV Decadron 200 mg in the ED and will continue on IV Decadron 100 mg -she received IV dexamethasone 6 mg in the ED and will continue while hospitali zed. 2. Diabetes type 2, well controlled -oral anti diabetics are held and she will receive low-dose correctional insulin with ACHS glucose testing -diabetic diet 3. Essential hypertension, appears to be well controlled -held lisinopril initially, restarted today will continue to monitor. 4. Depression, chronic and stable Continue home dose of venlafaxine VTE prophylaxis: Enoxaparin 40 mg subQ daily Consults: none Patient is admitted under inpatient status FEN: IV saline lock, carb controlled diet Code Status: Full and Gena Morales, daughter and surrogate/POA
[2021-04-25 12:00] VITALS: BP 151/70; PULSE 57; RESP 18; TEMP 37; O2SAT 94
[2021-04-25] MEDS: INSULIN LISPRO 100 UNIT/ML 3ML VIAL SUBCUT ×3 (12:37→21:39)
--- NOTE | 2021-04-25 14:55 | PC.NURSE ---
Day Shift Note Patient intermittently on 2L NC/RA throughout shift, does desat to the 80s with activity with slow recovery back to 93%. Pt reports feeling good today, good air movement noted throughout lung yanez, crackles to right. SB in the 50s. Independent in room. Minimal cough/SOB. Call light within reach, using appropriately to make needs known.
[2021-04-25 16:50] VITALS: BP 178/74; PULSE 59; RESP 28; TEMP 36.2; O2SAT 94
[2021-04-25] MEDS: REMDESIVIR 100 MG in SODIUM CHLORIDE 0.9% 230 ML 250 ML IV (18:00)
[2021-04-25 21:00] VITALS: BP 151/68; PULSE 53; RESP 22; TEMP 36.6; O2SAT 90
[2021-04-26] VITALS (7 sets, daily range): BP systolic 115–169; BP diastolic 57–77; PULSE 48–55; RESP 17–28; TEMP 36.2–36.9; O2SAT 94–98
[2021-04-26] MEDS: ENOXAPARIN 40 MG/0.4 ML SYRINGE SUBCUT (09:28)
[2021-04-26] MEDS: gemfibroziL 600 MG TABLET PO ×2 (09:28→21:53)
[2021-04-26] MEDS: DEXAMETHASONE 10 MG/ML VIAL 6 MG IV (09:28)
[2021-04-26] MEDS: ASPIRIN EC 81 MG TABLET PO (09:29)
[2021-04-26] MEDS: PRAVASTATIN 20 MG TABLET 40 MG PO (09:29)
[2021-04-26] MEDS: lisinopriL 20 MG TABLET PO (09:29)
[2021-04-26] MEDS: VENLAFAXINE ER 37.5 MG CAP 75 MG PO (09:29)
[2021-04-26] MEDS: SODIUM CHLORIDE 0.9% FLUSH 10 ML IV ×2 (09:29→21:53)
[2021-04-26] MEDS: LEVOTHYROXINE 75 MCG TABLET PO (09:29)
[2021-04-26] MEDS: INSULIN LISPRO 100 UNIT/ML 3ML VIAL SUBCUT ×3 (13:00→21:53)
--- NOTE | 2021-04-26 13:02 | P.PN_ITS ---
Subjective Subjective Date Patient Seen: 04/26/21 Time Patient Seen: 13:02 Interval history: Today she feels improved again. With activity O2 sats drop to mid 80s today. Improved cough and feels almost back to normal. Still quite winded with exertion but improving. Exam Vital Signs (past 8 hours): - 04/26/21 09:00 Temperature 98.5 F Pulse Rate 55 L Respiratory Rate 17 Blood Pressure 156/73 H Pulse Oximetry 95 Oxygen Delivery Method Room Air,Nasal Cannula Oxygen Flow Rate 0 Narrative Exam Narrative: Gen: no acute distress Resp: decreased breath sounds, bibasilar crackles CV: regular rate and rhythm, with no murmurs Abd: soft, non-tender, normal bowel sounds Skin: no lesions or rashes, dry and intact Neuro: alert and oriented, no focal deficits Psyche: pleasant, normal mood and affect Objective Labs Result Diagrams: 04/25/21 07:33 04/25/21 07:33 [facility] Medical History Diabetes Hypertension Hypothyroid Surgical History No pertinent past surgical history Family History Father Congestive heart failure Mother Dementia Daughter Chromosomal abnormality Son MVA (motor vehicle accident) Social History household members: family Smoking Status: Never smoker Assessment & Plan Assessment & Plan narrative: Ms. Faustin is a 61w with PMH DM, depression, HTN who comes in with acute respiratory failure secondary to COVID pneumonia. 1. Acute hypoxemic respiratory failure secondary to COVID pneumonia -now mainly hypoxic only with exertion, continue to encourage ambulation, once no longer hypoxic with exertion she can be discharged. -she received IV Decadron 200 mg in the ED and will continue on IV Decadron 100 mg. Has received 5 days but will extend to 10 given improvement. -she received IV dexamethasone 6 mg in the ED and will continue while hospitalized, up to 10 days 2. Diabetes type 2, well controlled -oral anti diabetics are held and she will receive low-dose correctional insulin with ACHS glucose testing -diabetic diet 3. Essential hypertension, appears to be well controlled -held lisinopril initially, restarted today will continue to monitor. 4. Depression, chronic and stable Continue home dose of venlafaxine VTE prophylaxis: Enoxaparin 40 mg subQ daily Consults: none Patient is admitted under inpatient status FEN: IV saline lock, carb controlled diet Code Status: Full and Gena Morales, daughter and surrogate/POA COVID-19 COVID-19 status: Positive
[2021-04-26] MEDS: REMDESIVIR 100 MG in SODIUM CHLORIDE 0.9% 230 ML 167 ML IV (18:25)
[2021-04-27 00:34] VITALS: BP 148/67; PULSE 47; RESP 23; TEMP 36.7; O2SAT 99
[2021-04-27 03:07] VITALS: BP 142/67; PULSE 48; RESP 19; TEMP 37; O2SAT 98
[2021-04-27] MEDS: LEVOTHYROXINE 75 MCG TABLET PO (06:00)
[2021-04-27 06:59] LABS: Hematocrit 35.5 % (36-46); Hemoglobin 11.9 g/dL (12.0-16.0); Mean Corpuscular HGB Conc 33.6 % (30-36); Mean Corpuscular Hemoglobin 28.8 PG (26-34); Mean Corpuscular Volume 85.8 fL (80-100); Platelet Count 525 X10^3/uL (150-400); Red Blood Cell Count 4.13 X10^6/uL (4.0-5.2); Red Cell Distribution Width 13.8 % (11.6-14.8); White Blood Cell Count 12.1 X10^3/uL (4.5-11.0)
[2021-04-27 07:02] LABS: Add Manual Diff / Slide Review YES; BUN Creatinine Ratio 39.7 (6-22); Blood Urea Nitrogen 23 mg/dL (7-17); Calcium 9.2 mg/dL (8.4-10.2); Carbon Dioxide 26 mmol/L (22-32); Chloride 105 mmol/L (98-107); Estimated Glomerular Filt Rate > 60.0 mL/min (>60); Glucose 119 mg/dL (80-110); HEMOLYSIS < 15 (0-50); Potassium 4.6 mmol/L (3.4-5.1); Sodium 138 mmol/L (137-145)
[2021-04-27 07:41] LABS: Neutrophils Absolute Manual 7865 /uL (3000-5900); Total Cells Counted 100
[2021-04-27 07:43] LABS: Polychromasia 1+
[2021-04-27 07:44] LABS: Platelet Estimate Increased on smear
[2021-04-27 08:00] VITALS: BP 149/67; PULSE 51; RESP 18; TEMP 35.8; O2SAT 94
[2021-04-27] MEDS: ENOXAPARIN 40 MG/0.4 ML SYRINGE SUBCUT (09:01)
[2021-04-27] MEDS: DEXAMETHASONE 10 MG/ML VIAL 6 MG IV (09:01)
[2021-04-27] MEDS: gemfibroziL 600 MG TABLET PO (09:02)
[2021-04-27] MEDS: lisinopriL 20 MG TABLET PO (09:02)
[2021-04-27] MEDS: ASPIRIN EC 81 MG TABLET PO (09:02)
[2021-04-27] MEDS: SODIUM CHLORIDE 0.9% FLUSH 10 ML IV (09:02)
[2021-04-27] MEDS: PRAVASTATIN 20 MG TABLET 40 MG PO (09:04)
[2021-04-27] MEDS: VENLAFAXINE ER 37.5 MG CAP 75 MG PO (09:04)
[2021-04-27 10:42] VITALS: O2SAT 95
[2021-04-27 12:00] VITALS: BP 119/58; PULSE 53; RESP 20; TEMP 36.4; O2SAT 95
--- NOTE | 2021-05-02 11:57 | P.DS_ITS ---
History of Present Illness History of Present Illness Chief complaint: +covid test, fever for 8 days, SOB Narrative: Agnes Faustin is 61-year-old female nonsmoker with a history of diabetes, hypertension and hypothyroid presents with a chief complaint of fever, headache, sore throat, dry hacking cough and shortness of breath for the past few days. She also observed that her stool was soft ever since her suspected exposure, it she denies dysuria or constipation. She denies diabetic neuropathy. She has significant sleep apnea and uses CPAP at night. She states that her symptoms have been gradually worsening for the past 8 days. When she lost her sense of taste and smell, she had a COVID swab which was positive a few days ago. She denies any recent travel and believes that she likely was exposed from a member at her sikhism group. She has not received the vaccine because she states she had mixed messages about people who could receive the vaccine and who could forego the use of masks and social distancing. She was recently laid off from the [employer] service. The patient has diabetes type 2 and believes her A1c is in the 6s. Discharge Providers Provider Date of admission: 04/21/21 20:51 Discharge Date: 04/27/21 Primary care physician: Percy Pereira, Discharge provider: Luiz Adams MD Summary Hospital Course Discharge Diagnosis: 1. Acute hypoxic respiratory failure 2. COVID-19 pneumonia 3. Type 2 diabetes Patient was admitted due to respiratory failure secondary to COVI-19 pneumonia. She was treated with dexamethasone and Remdesivir. Over the ensuing week her condition gradually improved to where she was feeling well and O2 sats were staying in mid 90's at rest and with exertion. Status at Discharge Cognitive/behavioral status at discharge: oriented Functional status at discharge: independent ambulation Overall status at discharge: patient is progressing back to baseline Time Spent with Patient Time spent: Greater than 30 minutes Exam Vital Signs (past 8 hours): Oxygen Delivery Method Room Air Oxygen Flow Rate 0 Objective Labs Result Diagrams: 04/27/21 06:40 04/27/21 06:40 [facility] Medical History Diabetes Hypertension Hypothyroid Surgical History No pertinent past surgical history Family History Father Congestive heart failure Mother Dementia Daughter Chromosomal abnormality Son MVA (motor vehicle accident) Social History household members: family Smoking Status: Never smoker Discharge Plan Discharge Plan Patient Disposition: Home Discharge orders & Medications Prescriptions: Continued metformin 500 mg tablet 500 mg PO DAILY RF: 0 pravastatin 40 mg tablet 40 mg PO DAILY RF: 0 lisinopril 20 mg tablet 20 mg PO DAILY RF: 0 gemfibrozil 600 mg tablet 600 mg PO BID RF: 0 venlafaxine 37.5 mg Capsule,Extended Release 24hr 75 mg PO DAILY RF: 0 levothyroxine 75 mcg Tablet 75 mcg PO DAILY RF: 0 Follow up/Referrals: Percy Pereira DO [Primary Care Provider] - Diet/Activity/Treatments Diet: Regular Visit Report/Discharge Packet Instructions: DI for COVID-19 (Suspected or Confirmed ) Discharge Data Primary Care Provider: Percy Pereira
== END 2021-04-27 14:55 | disposition home or self-care (01) | DRG 177 ==
LOC: ED 17:58 → AC 20:51 → ICU 04-22 11:21
PROVIDERS: Emergency Medicine; Internal Medicine; Nurse Practitioner Family; Admitting Provider Nurse Practitioner Family; Emergency Provider Emergency Medicine; PCP Family Medicine; Referring Provider Emergency Medicine; Visit Provider Nurse Practitioner Family
DX: U07.1 COVID-19 (principal); J12.82 Pneumonia due to coronavirus disease 2019; J96.01 Acute respiratory failure with hypoxia; G47.30 Sleep apnea, unspecified; E11.9 Type 2 diabetes mellitus without complications; I10 Essential (primary) hypertension; F32.9 Major depressive disorder, single episode, unspecified; E03.9 Hypothyroidism, unspecified; Z79.84 Long term (current) use of oral hypoglycemic drugs
CPT/HCPCS: 36415; 36592; 71045; 80048; 80053; 80076; 82728; 82962; 83036; 83605; 83615; 83735; 83880; 85007; 85025; 85027; 85379; 87635; 87797; 93005; 93010; 94150; 94762; 96374; 96375; 99284; C9803; J1100; J1650; J1815